=== PATIENT | female | born 1960 | race Caucasian/White ===

== ENCOUNTER 2017-01-04 11:11 | Emergency (ER) | payer OTHER ==
[2017-01-04] MEDS ORDERED: PERCOCET TABLET 5/325MG PO STA (11:45)
--- NOTE | 2017-01-04 11:53 | ERPHSYRPT ---
- History of Present Illness Time Seen by Provider: 01/04/17 11:51 Historian: patient Exam Limitations: no limitations Patient Subjective Stated Complaint: pt states 2 days ago she was senting on couch and got bumped off the couch and injured ribs on a table next to the couch. pt c/o pain to right ribs. Triage Nursing Assessment: pt pink, warm, dry. no deformity mild bruising noted. pt ambulated into Er without difficulty. lung sounds clear and equal. Physician History: 56 y/o female comes to the ER after being pushed off a couch and hitting the right side of her ribs off the side of the couch and on the floor 2 days ago. Pt describes the pain as sharp, constant, worse with inspiration, 9/10 and not relieved by gabapentin and advil. Pt admits to dyspnea on exertion. No fever or chills. Timing/Duration: day(s) (2) Activities at Onset: none Quality: sharpness Location: other (right rib pain) Chest Pain Radiation: no radiation Severity of Pain-Max: severe Severity of Pain-Current: severe Modifying Factors: Improves With: breathing Prior Chest Pain/Cardiac Workup: no prior chest pain Nitro Today/Relief: no nitro taken today Aspirin Treatment Today: no aspirin today Allergies/Adverse Reactions: amoxicillin [Amoxicillin] Allergy (Severe, Verified 01/04/17 11:38) Difficulty Breathing states took 1/2 pill and went into anaphylactic shock iodine Allergy (Verified 01/04/17 11:38) Rash Sulfa (Sulfonamide Antibiotics) Allergy (Verified 01/04/17 11:38) Home Medications: Omeprazole Magnesium [Prilosec Otc] 20 mg PO DAILY 12/31/13 [History] Albuterol Sulfate [Proair Hfa] 2 puff IH Q4HPRN PRN 07/15/16 [History] Alprazolam 2 mg PO QID 07/15/16 [History] Cyclobenzaprine HCl 10 mg [Cyclobenzaprine 10 MG] 10 mg PO TID PRN PRN 02/21 [History] Fexofenadine HCl [Gill Allergy] 180 mg PO DAILY 07/15/16 [History] Furosemide 20 mg [Lasix 20 mg] 20 mg PO DAILY 07/15/16 [History] Gabapentin [Neurontin] 600 mg PO TID 07/15/16 [History] Lisinopril [Zestril 40 mg] 40 mg PO DAILY 07/15/16 [History] Potassium Chloride 10 Meq Tab* [Klor Con 10 MEQ] 10 meq PO DAILY 07/15/16 [ History] Hx Tetanus, Diphtheria Vaccination/Date Given: Yes (up to date) Hx Influenza Vaccination/Date Given: No Hx Pneumococcal Vaccination/Date Given: No Immunizations Up to Date: Yes - Review of Systems Constitutional: No Fever, No Chills Eyes: No Symptoms Ears, Nose, & Throat: No Symptoms Respiratory: Dyspnea on Exertion (RAYA), No Cough, No Dyspnea Cardiac: Chest Pain, No Edema, No Syncope Abdominal/Gastrointestinal: No Abdominal Pain, No Nausea, No Vomiting, No Diarrhea Genitourinary Symptoms: No Dysuria Musculoskeletal: No Back Pain, No Neck Pain Skin: No Rash Neurological: No Dizziness, No Focal Weakness, No Sensory Changes Psychological: No Symptoms Endocrine: No Symptoms All Other Systems: Reviewed and Negative - Past Medical History Pertinent Past Medical History: Yes Neurological History: Migraines, Peripheral Neuropathy ENT History: No Pertinent History Cardiac History: High Cholesterol, Hypertension, Myocardial Infarction ([place]) Respiratory History: Asthma, COPD Endocrine Medical History: Hypothyroidism Musculoskeletal History: Osteoarthritis GI Medical History: No Pertinent History Psycho-Social History: Anxiety, Depression, Eating Disorders Female Reproductive Disorders: Cervical Cancer Other Medical History: [place] x2, nose fracture - Past Surgical History Past Surgical History: Yes Neuro Surgical History: No Pertinent History Cardiac: No Pertinent History Respiratory: No Pertinent History Gastrointestinal: No Pertinent History Genitourinary: No Pertinent History Musculoskeletal: No Pertinent History Female Surgical History: Section, Tubal Ligation Other Surgical History: CERVICAL CANCER REMOVED X 3, X 1, X 1 - Social History Smoking Status: Current every day smoker How long have you smoked: 15 Exposure to second hand smoke: Yes Drug Use: marijuana Patient Lives Alone: No - Female History Hx Now: No - Nursing Vital Signs Nursing Vital Signs: Initial Vital Signs Temperature 97.8 F 01/04/17 11:30 Pulse Rate 84 01/04/17 11:30 Respiratory Rate 18 01/04/17 11:30 Blood Pressure 158/105 01/04/17 11:30 O2 Sat by Pulse Oximetry 98 01/04/17 11:30 Pain Scale Pain Intensity 9 - Physical Exam General Appearance: no apparent distress, alert Eye Exam: PERRL/EOMI, eyes nml inspection Ears, Nose, Throat Exam: normal ENT inspection, moist mucous membranes Neck Exam: normal inspection, non-tender, supple, full range of motion Respiratory Exam: normal breath sounds, chest tenderness, diminished breath sounds, No respiratory distress Cardiovascular Exam: regular rate/rhythm, normal heart sounds, normal peripheral pulses Gastrointestinal/Abdomen Exam: soft, No tenderness, No mass Back Exam: normal inspection, No CVA tenderness, No vertebral tenderness Extremity Exam: normal inspection, normal range of motion Neurologic Exam: alert, oriented x 3, cooperative, normal mood/affect, sensation nml, No motor deficits Skin Exam: normal color, warm, dry SpO2: 98 Oxygen Delivery: Room Air - Course Nursing assessment & vital signs reviewed: Yes Ordered Tests: Active Orders 24 hr Category Date Time Status RIBS BILATERAL INCLUDE PA CXR Stat Exams 01/04/17 Completed Medication Summary Discontinued Medications Generic Name Dose Route Start Last Admin Trade Name Freq PRN Reason Stop Dose Admin Oxycodone/Acetaminophen 1 tab 01/04/17 11:45 01/04/17 11:59 Percocet Tablet 5/325mg PO 01/04/17 11:46 1 tab STAT STA Administration Oxycodone/Acetaminophen Confirm 01/04/17 11:58 Percocet Tablet 5/325mg Administered 01/04/17 11:59 Dose 1 tab .ROUTE .STK-MED ONE - Progress Progress: improved Air Movement: good Progress Note: 01/04/17 12:34 The CXR does not show an acute rib fracture. There are old left sided rib fracture. Pt will be d/c home on percocet for pain. - Departure Time of Disposition: 12:35 Departure Disposition: Home Clinical Impression: Rib injury Condition: Stable Critical Care Time: No Referrals: KULDEEP BEEBE [Primary Care Provider] - Instructions: Rib Contusion Additional Instructions: Take the pain medications as prescribed. Follow up with your PCP if you should continue to have rib pain. Prescriptions: Oxycodone HCl/Acetaminophen [Percocet 5-325 mg Tablet] 1 each PO Q6HPRN PRN #15 tablet PRN Reason: Pain
[2017-01-04] MEDS ORDERED: PERCOCET TABLET 5/325MG ONE (11:58)
--- NOTE | 2017-01-04 12:22 | XRAY ---
Indication: Right sided pain following injury. Comparison: Left ribs June 02, 2011. 2 views of the left and right ribs demonstrates old left 7th/8th/9th rib fractures, old partially united distal right clavicle fracture, mild lumbar dextroscoliosis, and a few scattered pulmonary calcified granulomas. No other bony, articular, or soft tissue abnormalities.
[2017-01-04 12:50] VITALS: BP 120/67; PULSE 87; O2SAT 100
== END 2017-01-04 12:50 | disposition home or self-care (01) ==
LOC: ED 11:11
DX: S29.9XXA Unspecified injury of thorax, initial encounter (principal); W01.190A Fall on same level from slipping, tripping and stumbling with subsequent striking against furniture, initial encounter
CPT/HCPCS: 71111; 99284; A9270-GY

== ENCOUNTER 2017-01-22 10:13 | Emergency (ER) | payer OTHER ==
--- NOTE | 2017-01-22 10:35 | ERPHSYRPT ---
- History of Present Illness Time Seen by Provider: 01/22/17 10:33 Source: patient Exam Limitations: no limitations Patient Subjective Stated Complaint: pt reports playing corn hole last night et rolled her left ankle-woke this morning with dried blood on foot Triage Nursing Assessment: pt pink warm et dry-dried blood noted all over foot- pt instructed to soak foot for further evaluation-swelling noted to ankle Physician History: pt reports playing corn hole last night et rolled her left ankle-woke this morning with dried blood on foot Timing/Duration: yesterday Associated Symptoms: denies symptoms Allergies/Adverse Reactions: amoxicillin [Amoxicillin] Allergy (Severe, Verified 01/22/17 10:19) Difficulty Breathing states took 1/2 pill and went into anaphylactic shock iodine Allergy (Verified 01/22/17 10:19) Rash Sulfa (Sulfonamide Antibiotics) Allergy (Verified 01/22/17 10:19) Home Medications: Omeprazole Magnesium [Prilosec Otc] 20 mg PO DAILY 12/31/13 [History] Albuterol Sulfate [Proair Hfa] 2 puff IH Q4HPRN PRN 07/15/16 [History] Alprazolam 2 mg PO QID 07/15/16 [History] Cyclobenzaprine HCl 10 mg [Cyclobenzaprine 10 MG] 10 mg PO TID PRN PRN 02/21 [History] Fexofenadine HCl [Gill Allergy] 180 mg PO DAILY 07/15/16 [History] Furosemide 20 mg [Lasix 20 mg] 20 mg PO DAILY 07/15/16 [History] Gabapentin [Neurontin] 600 mg PO TID 07/15/16 [History] Lisinopril [Zestril 40 mg] 40 mg PO DAILY 07/15/16 [History] Potassium Chloride 10 Meq Tab* [Klor Con 10 MEQ] 10 meq PO DAILY 07/15/16 [ History] Hx Tetanus, Diphtheria Vaccination/Date Given: No Hx Influenza Vaccination/Date Given: No Hx Pneumococcal Vaccination/Date Given: No Immunizations Up to Date: Yes - Review of Systems Constitutional: No Symptoms Musculoskeletal: Joint Pain (left foot toes), Other (cut bermudez beneath the left foot toes) - Past Medical History Pertinent Past Medical History: Yes Neurological History: Migraines, Peripheral Neuropathy ENT History: No Pertinent History Cardiac History: High Cholesterol, Hypertension, Myocardial Infarction ([place]) Respiratory History: Asthma, COPD Endocrine Medical History: Hypothyroidism Musculoskeletal History: Osteoarthritis GI Medical History: No Pertinent History Psycho-Social History: Anxiety, Depression, Eating Disorders Female Reproductive Disorders: Cervical Cancer Other Medical History: [place] x2, nose fracture - Past Surgical History Past Surgical History: Yes Neuro Surgical History: No Pertinent History Cardiac: No Pertinent History Respiratory: No Pertinent History Gastrointestinal: No Pertinent History Genitourinary: No Pertinent History Musculoskeletal: No Pertinent History Female Surgical History: Section, Tubal Ligation Other Surgical History: CERVICAL CANCER REMOVED X 3, X 1, X 1 - Social History Smoking Status: Current every day smoker How long have you smoked: 15 Exposure to second hand smoke: Yes Drug Use: marijuana Patient Lives Alone: No - Female History Hx Now: No - Nursing Vital Signs Nursing Vital Signs: Initial Vital Signs Temperature 98.1 F 01/22/17 10:21 Pulse Rate 99 H 01/22/17 10:21 Respiratory Rate 18 01/22/17 10:21 Blood Pressure 147/80 01/22/17 10:21 O2 Sat by Pulse Oximetry 95 01/22/17 10:21 Pain Scale Pain Intensity 10 - Physical Exam General Appearance: no apparent distress Extremity Exam: lacerations (left foot toes planter area) SpO2: 95 Oxygen Delivery: Room Air - Course Nursing assessment & vital signs reviewed: Yes - Radiology Exams Ankle X-ray Interpretation: Reviewed by me, Negative, No Fracture, No Subluxation Foot X-ray Interpretation: Reviewed by me, Non-displaced Fracture (5th distal metatarsal) Ordered Tests: Active Orders 24 hr Category Date Time Status Wound Care STAT Care 01/22/17 10:32 Active ANKLE (3 VIEWS) Routine Exams 01/22/17 Taken ANKLE (3 VIEWS) Stat Exams 01/22/17 10:50 Taken FOOT (MINIMUM 3 VIEWS) Routine Exams 01/22/17 Taken FOOT (MINIMUM 3 VIEWS) Stat Exams 01/22/17 10:50 Taken Medication Summary Discontinued Medications Generic Name Dose Route Start Last Admin Trade Name Freq PRN Reason Stop Dose Admin Bacitracin Confirm 01/22/17 11:30 Baciguent Packet Administered 01/22/17 11:31 Dose 1 gm .ROUTE .STK-MED ONE Ketorolac Tromethamine 60 mg 01/22/17 10:51 01/22/17 11:21 Toradol 30 Mg Injection IM 01/22/17 10:52 60 mg STAT ONE Administration Ketorolac Tromethamine Confirm 01/22/17 11:19 Toradol 30 Mg Injection Administered 01/22/17 11:20 Dose 60 mg .ROUTE .STK-MED ONE - Progress Progress: improved, pain not gone completely Progress Note: 01/22/17 11:34 left foot and ankle boot given. dressing applied. 01/22/17 11:34 Patient is informed that she has 3 small laceration in folds of her left foot toes which are more then 12 hours old so they cannot be sutured and they will heal from inside out and will take 2-3 weeks. dressing instructions given. Counseled pt/family regarding: diagnosis, need for follow-up, rad results - Departure Time of Disposition: 11:36 Departure Disposition: Home Clinical Impression: Metatarsal bone fracture Qualifiers: Encounter type: initial encounter Metatarsal bone: fifth Fracture type: closed Fracture alignment: nondisplaced Laterality: left Qualified Code(s): S92.355A - Nondisplaced fracture of fifth metatarsal bone, left foot, initial encounter for closed fracture Laceration of toe of left foot without damage to nail Qualifiers: Encounter type: initial encounter Toe: lesser toe Foreign body presence: without foreign body Qualified Code(s): S91.115A - Laceration without foreign body of left lesser toe(s) without damage to nail, initial encounter Condition: Stable Critical Care Time: No Referrals: KULDEEP BEEBE [Primary Care Provider] - Instructions: July Stress Fracture Additional Instructions: SPRAINS/STRAINS/CONTUSIONS 1. Rest the affected area as much as possible for the next few days. 2. Apply ice to the affected area for 20-30 minutes at a time, several times a day. 3. If you receive an elastic wrap, wear it only while awake for comfort and support. Re-wrap the elastic wrap if it feels too tight or too loose. 4. If swelling is present, elevate the affected part above the level of the heart for at least 2 to 3 days. 5. Use splints, slings, or crutches as instructed. 6. Watch for severe swelling, coldness, numbness, and discoloration of the fingers and toes. See your family physician or return to the emergency department if any of these are noted. LACERATION CARE 1. Do not use peroxide, merthiolate, alcohol, or betadine. 2. Keep wound clean and dry. 3. Change dressing if it becomes wet or soiled. 4. If you must work, wear protective covering. 5. You may return to the emergency department or see your family physician for suture removal. 6. See your family physician or return to the emergency department for any of the following signs or symptoms: A. Redness B. Swelling C. Discolored drainage D. Red streaks E. Elevated temperature F. Other signs of infection Please follow the instructions given to you. Please take your medication as prescribed if given. If symptoms recur or get worse, come back to the emergency room if you cannot reach your primary care physician, or call your primary care physician for an appointment. Again if your symptoms get worse, come back to the emergency room. Thanks for visiting emergency room, and let us take care of you. Patient is informed that she has 3 small laceration in folds of her left foot toes which are more then 12 hours old so they cannot be sutured and they will heal from inside out and will take 2-3 weeks. dressing instructions given. Prescriptions: Ciprofloxacin [Cipro 500 MG] 500 mg PO BIDAC #20 tablet Naproxen 500 mg [Naprosyn 500 MG] 500 mg PO BIDAC #30 tablet
[2017-01-22] MEDS ORDERED: TORAdol 30 mg Injection IM ONE (10:51)
[2017-01-22] MEDS ORDERED: TORAdol 30 mg Injection ONE (11:19)
[2017-01-22] MEDS ORDERED: BACIGUENT PACKET ONE (11:30)
[2017-01-22] MEDS ORDERED: BACIGUENT PACKET TP ONE (12:01)
[2017-01-22 12:11] VITALS: BP 132/70; PULSE 78; O2SAT 96
--- NOTE | 2017-01-22 21:05 | XRAY ---
Indication: Pain following injury. Comparison: None 3 views of the right ankle demonstrates minimal anterior lateral soft tissue swelling. No other bony, articular, or soft tissue abnormalities. Comment: Preliminary interpretation was made by [facility]. No discrepancy.
--- NOTE | 2017-01-22 21:07 | XRAY ---
Indication: Pain following injury. Comparison: None 3 views of the left ankle demonstrates tiny plantar heel spur. No other bony, articular, or soft tissue abnormalities. Comment: Preliminary interpretation was made by [facility]. No discrepancy.
--- NOTE | 2017-01-22 21:07 | XRAY ---
Indication: Pain following injury. Comparison: None 3 nonweightbearing views of the right foot obtained. No bony, articular, or soft tissue abnormalities. Comment: Preliminary interpretation was made by [facility]. No discrepancy.
--- NOTE | 2017-01-22 21:10 | XRAY ---
Indication: Pain following injury. Comparison: None 3 nonweightbearing views of the left foot demonstrates tiny plantar heel spur seen on left ankle exam of the same day. No other bony, articular, or soft tissue abnormalities. Comment: Preliminary interpretation was made by [facility]. No discrepancy.
== END 2017-01-22 12:11 | disposition home or self-care (01) ==
LOC: ED 10:13
DX: S92.355A Nondisplaced fracture of fifth metatarsal bone, left foot, initial encounter for closed fracture (principal); S91.115A Laceration without foreign body of left lesser toe(s) without damage to nail, initial encounter; X50.0XXA Overexertion from strenuous movement or load, initial encounter
CPT/HCPCS: 73610; 73630; 96372; 99284; J1885; A9270-GY

== ENCOUNTER 2018-04-21 13:07 | Emergency (ER) | payer OTHER ==
[2018-04-21] MEDS ORDERED: Hydromorphone 1 mg/ml Ampule IM ONE (13:41)
[2018-04-21] MEDS ORDERED: Phenergan 25 MG INJ IM ONE (13:42)
--- NOTE | 2018-04-21 13:46 | ERPHSYRPT ---
- History of Present Illness Time Seen by Provider: 04/21/18 13:40 Source: patient Exam Limitations: clinical condition Patient Subjective Stated Complaint: co headache everyday for a month, this headache today is the worse she has had, seen Wade Ramires on monday and is being referred to neurologist. Triage Nursing Assessment: pt alert, walked in, resp easy, skin w/d/p. pain to right eye that radiates around to back, nauseated, flushed feeling, has tried alever, xanax/ Physician History: PATIENT WITH A HISTORY MIGRAINE HEADACHES FOR 30 YEARS, COMPLAINS OF A GENERALIZED HEADACHE DAILY FOR THE PAST MONTH ASSOCIATED WITH NAUSEA AND PHOTOPHOBIA. PATIENT DENIES FEVER, NECK STIFFNESS, BLURRED, OR SLURRED SPEECH. Timing/Duration: week(s) Quality: throbbing Head Pain Location: global Severity of Pain-Max: moderate Severity of Pain-Current: moderate Recent Head Trauma: no recent headache/trauma, chronic headaches Modifying Factors: Improves With: exposure to light Associated Symptoms: sensitive to light Previous symptoms: same symptoms as today Allergies/Adverse Reactions: amoxicillin [Amoxicillin] Allergy (Severe, Verified 04/21/18 13:28) Difficulty Breathing states took 1/2 pill and went into anaphylactic shock iodine Allergy (Verified 04/21/18 13:28) Rash Sulfa (Sulfonamide Antibiotics) Allergy (Verified 04/21/18 13:28) Home Medications: Omeprazole Magnesium [Prilosec Otc] 20 mg PO DAILY 12/31/13 [History] ALPRAZolam [Alprazolam] 2 mg PO QID 07/15/16 [History] Albuterol Sulfate [Proair Hfa] 2 puff IH Q4HPRN PRN 07/15/16 [History] Cyclobenzaprine HCl 10 mg [Cyclobenzaprine 10 MG] 10 mg PO TID PRN PRN 02/21 [History] Fexofenadine HCl [Gill Allergy] 180 mg PO DAILY 07/15/16 [History] Lisinopril [Zestril 40 mg] 40 mg PO DAILY 07/15/16 [History] Potassium Chloride 10 Meq Tab* [Klor Con 10 MEQ] 10 meq PO DAILY 07/15/16 [ History] Levothyroxine Sodium 100 Mcg [Synthroid 100 Mcg] 125 mcg PO DAILY 04/21/18 [History] Hx Tetanus, Diphtheria Vaccination/Date Given: No Hx Influenza Vaccination/Date Given: Yes Hx Pneumococcal Vaccination/Date Given: No Immunizations Up to Date: Yes - Review of Systems Constitutional: No Fever, No Chills Eyes: No Symptoms Ears, Nose, & Throat: No Symptoms Respiratory: No Symptoms, No Cough, No Dyspnea Cardiac: No Symptoms, No Chest Pain, No Edema, No Syncope Abdominal/Gastrointestinal: No Symptoms, No Abdominal Pain, No Nausea, No Vomiting, No Diarrhea Genitourinary Symptoms: No Symptoms, No Dysuria Musculoskeletal: No Symptoms, No Back Pain, No Neck Pain Skin: No Symptoms, No Rash Neurological: Headache, No Dizziness, No Focal Weakness, No Sensory Changes Psychological: No Symptoms Endocrine: No Symptoms All Other Systems: Reviewed and Negative - Past Medical History Pertinent Past Medical History: Yes Neurological History: Migraines, Seizures ENT History: No Pertinent History Cardiac History: Hypertension Respiratory History: Asthma, COPD Endocrine Medical History: Hyperthyroidism Musculoskeletal History: Osteoarthritis GI Medical History: No Pertinent History Psycho-Social History: Depression Female Reproductive Disorders: Cervical Cancer Other Medical History: [place] x2, nose fracture - Past Surgical History Past Surgical History: Yes Neuro Surgical History: No Pertinent History Cardiac: No Pertinent History Respiratory: No Pertinent History Gastrointestinal: No Pertinent History Genitourinary: No Pertinent History Musculoskeletal: No Pertinent History Female Surgical History: Section Other Surgical History: CERVICAL CANCER REMOVED X 3, X 1, X 1 - Social History Smoking Status: Current every day smoker How long have you smoked: 15 Exposure to second hand smoke: Yes Drug Use: marijuana Patient Lives Alone: No - Female History Hx Last Menstrual Period: post Hx Now: No - Nursing Vital Signs Nursing Vital Signs: Initial Vital Signs Temperature 97.8 F 04/21/18 13:21 Pulse Rate 78 04/21/18 13:21 Respiratory Rate 18 04/21/18 13:21 Blood Pressure 173/108 04/21/18 13:21 O2 Sat by Pulse Oximetry 98 04/21/18 13:21 Pain Scale Pain Intensity 4 - Physical Exam General Appearance: mild distress Eye Exam: PERRL/EOMI Ears, Nose, Throat Exam: normal ENT inspection, moist mucous membranes Neck Exam: normal inspection, supple, full range of motion, No meningismus Respiratory Exam: normal breath sounds, lungs clear Cardiovascular Exam: regular rate/rhythm, normal heart sounds Gastrointestinal/Abdominal Exam: No tenderness, No distention Back Exam: normal inspection, normal range of motion Mental Status Exam: alert, oriented x 3, 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 THE PITUITARY GLAND IS NOT ABNORMALLY LARGE. THE FOCAL HYPERDENSITY IN THE ANTERIOR PORTION PITUITARY GLAND COULD REPRESENT HEMORRHAGE, PITUITARY APOPLEXY, RATHKE CLEFT CYST, RECOMMEND SELLA PROTOCOL MRI WITH AND WITHOUT CONTRAST.) Ordered Tests: Active Orders 24 hr Category Date Time Status HEAD WITHOUT CONTRAST [CT] Stat Exams 04/21/18 13:41 Completed BMP Stat Lab 04/21/18 15:10 Completed CBC W DIFF Stat Lab 04/21/18 15:10 Completed PROTIME WITH INR Stat Lab 04/21/18 15:10 Completed TSH [TSH, 3RD Generation] Stat Lab 04/21/18 16:07 Ordered Medication Summary Discontinued Medications Generic Name Dose Route Start Last Admin Trade Name Mansoorq PRN Reason Stop Dose Admin Hydromorphone HCl 1 mg 04/21/18 13:41 04/21/18 13:50 Hydromorphone 1 Mg/Ml Ampule IM 04/21/18 13:42 1 mg STAT ONE Administration Hydromorphone HCl Confirm 04/21/18 13:48 Hydromorphone 1 Mg/Ml Ampule Administered 04/21/18 13:49 Dose 1 mg .ROUTE .STK-MED ONE Morphine Sulfate 4 mg 04/21/18 15:58 Morphine Sulfate 4 Mg Inj IV 04/21/18 15:59 STAT ONE Promethazine HCl 25 mg 04/21/18 13:42 04/21/18 13:50 Phenergan 25 Mg Inj IM 04/21/18 13:43 25 mg STAT ONE Administration Promethazine HCl Confirm 04/21/18 13:48 Phenergan 25 Mg Inj Administered 04/21/18 13:49 Dose 25 mg .ROUTE .STK-MED ONE Lab/Rad Data: Laboratory Result Diagrams 04/21/18 15:10 04/21/18 15:10 Laboratory Results 04/21/18 04/21/18 04/21/18 Range/Units 15:10 15:10 15:10 WBC 8.2 (4.0-10.5) K/mm3 RBC 4.05 L (4.1-5.4) M/mm3 Hgb 12.6 (12.0-16.0) gm/dl Hct 38.1 (35-47) % MCV 94.1 (78-100) fl MCH 31.1 (26-32) pg MCHC 33.1 (32-36) g/dl RDW 13.3 (11.5-14.0) % Plt Count 332 (150-450) K/mm3 MPV 10.3 H (6-9.5) fl Gran % 50.8 (36.0-66.0) % Eos # (Auto) 0.17 (0-0.5) Absolute Lymphs (auto) 2.97 (1.0-4.6) Absolute Monos (auto) 0.86 (0.0-1.3) Lymphocytes % 36.1 (24.0-44.0) % Monocytes % 10.5 (0.0-12.0) % Eosinophils % 2.1 (0.00-5.0) % Basophils % 0.5 (0.0-0.4) % Absolute Granulocytes 4.18 (1.4-6.9) Basophils # 0.04 (0-0.4) PT 11.2 (9.95-12.35) SECONDS INR 0.96 (0.8-3.0) Sodium 140 (137-145) mmol/L Potassium 4.5 (3.5-5.1) mmol/L Chloride 105 (98-107) mmol/L Carbon Dioxide 26 (22-30) mmol/L Anion Gap 13.4 (5-15) MEQ/L BUN 12 (7-17) mg/dL Creatinine 0.65 (0.52-1.04) mg/dL Estimated GFR > 60.0 ML/MIN Glucose 89 (74-106) mg/dL Calcium 9.6 (8.4-10.2) mg/dL - Progress Progress: improved Progress Note: 04/21/18 13:45 ADMINISTERED DILAUDID 1MG/PHENERGAN 25MG IM 04/21/18 15:13, IV NORMAL SALINE 50ML/HR 04/21/18 15:59, DISCUSSED WITH DR LUC KEMP AT [facility] OF [facility] SCIENTOLOGIST STATES HEAD CT FINDINGS IS UNREMARKABLE WITHOUT EVIDENCE OF HEMMORRHAGE OR EDEMA DIVERTICULITIS WILL SCHEDULE AN OUTPATIENT HEAD MRI WITH/ WITHOUT CONTRAST, WILL OBTAIN PROLACTIN LEVEL CORTISOL AND TSH LEVELS, WILL HAVE PATIENT FOLLOWUP WITH PRIMARY CARE PROVIDER NEXT WEEK AND NEUROSURGEON DR KEMP [phone] 04/21/18 16:12, THE HEAT CT SCAN READ BY DR MURRAY SHOWS A PRELIMINARY INTERPETATION WAS MADE BY [facility] WHO REPORTS SUB-5MM PITUITARY HYPERDENSITY WHICH HE DOES APPRECIATE. THE PITUITARY GLAND/ [place]URCICA IS UNCHANGED IN APPEARANCE WITH RESPECT TO THE COMPARISON EXAM. Counseled pt/family regarding: lab results, diagnosis, need for follow-up, rad results - Departure Time of Disposition: 17:40 Departure Disposition: Home Clinical Impression: MIGRAINE CEPHALGIA Condition: Stable Critical Care Time: No Referrals: KULDEEP BEEBE [Primary Care Provider] - Additional Instructions: RETURN TO HOSPITAL RADIOLOGY DEPARTMENT Apr AT 3PM FOR OUTPATIENT MRI OF YOUR BRAIN. FOLLOWUP WITH YOUR PRIMARY CARE PROVIDER THIS WEEK AND NEUROSURGEON DR LUC KEMP FOR CONSULTATION. NORCO 10/325 EVERY 6 HOURS FOR PAIN. Prescriptions: Hydrocodone/APAP 10/325 mg [Sidney 10/325 MG Tablet] 1 tab PO Q6H PRN PRN 5 Days #10 tablet MDD 4 PRN Reason: Pain
[2018-04-21] MEDS ORDERED: Hydromorphone 1 mg/ml Ampule ONE (13:48)
[2018-04-21] MEDS ORDERED: Phenergan 25 MG INJ ONE (13:48)
[2018-04-21 15:22] LABS: BASOPHIL % 0.5 % (0.0-0.4); Basophil (Absolute #) 0.04 (0-0.4); Eosinophil % 2.1 % (0.00-5.0); Eosinophil (Absolute #) 0.17 (0-0.5); Granulocyte Absolute (ANC) 4.18 (1.4-6.9); Granulocytes % 50.8 % (36.0-66.0); Hematocrit 38.1 % (35-47); Hemoglobin 12.6 gm/dl (12.0-16.0); Lymphocyte (Absolute #) 2.97 (1.0-4.6); Lymphocytes % 36.1 % (24.0-44.0); Mean Cell Volume 94.1 fl (78-100); Mean Corpuscular Hemoglobin 31.1 pg (26-32); Mean Corpuscular Hgb Concent. 33.1 g/dl (32-36); Mean Platelet Volume 10.3 fl (6-9.5); Monocyte (Absolute #) 0.86 (0.0-1.3); Monocytes % 10.5 % (0.0-12.0); Platelet Count 332 K/mm3 (150-450); Red Blood Count 4.05 M/mm3 (4.1-5.4); Red Cell Distribution Width 13.3 % (11.5-14.0); White Blood Count 8.2 K/mm3 (4.0-10.5)
[2018-04-21 15:30] VITALS: O2SAT 98
[2018-04-21 15:38] LABS: INR 0.96 (0.8-3.0)
[2018-04-21 15:43] LABS: ANION GAP 13.4 MEQ/L (5-15); BLOOD UREA NITROGEN 12 mg/dL (7-17); CHLORIDE 105 mmol/L (98-107); Calcium 9.6 mg/dL (8.4-10.2); Carbon Dioxide 26 mmol/L (22-30); Creatinine 1 0.65 mg/dL (0.52-1.04); Glucose 89 mg/dL (74-106); Potassium 4.5 mmol/L (3.5-5.1); SODIUM 140 mmol/L (137-145)
[2018-04-21] MEDS ORDERED: MORPHINE SULFATE 4 MG INJ IV ONE (15:58)
--- NOTE | 2018-04-21 15:59 | XRAY ---
Indication: Right-sided headache 1 month. History migraine seizures. Multiple contiguous axial images obtained through the head without contrast. Comparison: May 17, 2008. Age-appropriate global atrophy and very minimal periventricular degenerative microvascular ischemia bilaterally. Parasellar internal carotid arteries again demonstrates mild calcifications bilaterally. No acute intracranial hemorrhage, abnormal extra-axial fluid collection, or mass effect. Reynoso-white matter differentiation preserved. Fourth ventricle is midline without hydrocephalus. Bony calvarium intact. Visualized paranasal sinuses and mastoid air cells are clear. Impression: Normal aging brain including atrophy and degenerative microvascular ischemia. No acute intracranial abnormalities. Comment: Preliminary interpretation was made by [facility] who reports sub-5 mm pituitary hyperdensity which I do not appreciate. The pituitary gland/sella turcica is unchanged in appearance with respect to the comparison exam. However MRI sella turcica exam may yield further information if there remains further clinical concern. CTDI 69.66
[2018-04-21] MEDS ORDERED: MORPHINE SULFATE 4 MG INJ ONE (16:16)
[2018-04-21 16:53] VITALS: BP 117/80; PULSE 78
== END 2018-04-21 16:56 | disposition home or self-care (01) ==
LOC: ED 13:07
DX: G43.909 Migraine, unspecified, not intractable, without status migrainosus (principal); Z79.899 Other long term (current) drug therapy; I10 Essential (primary) hypertension
CPT/HCPCS: 36000; 36415; 70450; 80048; 82533; 84146; 84443; 85025; 85610; 96372; 96374; 96375; 99284; J1170; J2270; J2550

== ENCOUNTER 2018-05-09 15:15 | Emergency (ER) | payer OTHER ==
--- NOTE | 2018-05-09 16:17 | ERPHSYRPT ---
- History of Present Illness Time Seen by Provider: 05/09/18 16:08 Source: patient Exam Limitations: no limitations Patient Subjective Stated Complaint: pt was told to come to [facility] to results of MRI of head, pt has been seen for headaches for a over a month now, she had ct scan on 04/21/18 and was told to follow up with for an MRI, pt states she does not remember that visit, she states she eye sight is worse, she is a poor historian on events Triage Nursing Assessment: pt walked in, alert, anxious, resp easy, skin w/d/p. able to undress, Physician History: The patient is a 58-year-old female with her family complaining of daily headaches for more than one month. She was seen in this ER on 04/21/18 for the headaches. She had a head CT done at that time which I have reviewed the report showing that there is a septic 5 mm pituitary hyperdensity that was reported by the [facility] that our radiologist did not see it. An MRI of her brain was done today reporting that there was subacute ischemia that also may be leptomeningeal carcinomatosis, lymphoma, and focal encephalitis/meningitis. She was called by Dr. Ruiz who is covering for Dr. Beebe to come to the ER for further workup. She doesn't remember things very well. She does not even recall the visit here on 04/21/18. She can't even recall that she was given a phone call today to come to the ER. Her past medical history significant for daily headaches, hypertension, COPD, and hypothyroidism. Timing/Duration: other (2 months) Severity: moderate Character of Deficits: other (memory loss) Baseline/Normal Cognition: alert oriented x 3 Current Cognition: alert oriented x 3 Baseline Gait: walks w/o assistance Associated Symptoms: headache, other Allergies/Adverse Reactions: amoxicillin [Amoxicillin] Allergy (Severe, Verified 04/21/18 13:28) Difficulty Breathing states took 1/2 pill and went into anaphylactic shock iodine Allergy (Verified 04/21/18 13:28) Rash Sulfa (Sulfonamide Antibiotics) Allergy (Verified 04/21/18 13:28) Home Medications: Omeprazole Magnesium [Prilosec Otc] 20 mg PO DAILY 12/31/13 [History] Albuterol Sulfate [Proair Hfa] 2 puff IH Q4HPRN PRN 07/15/16 [History] Cyclobenzaprine HCl 10 mg [Cyclobenzaprine 10 MG] 10 mg PO TID PRN PRN 02/21 [History] Lisinopril [Zestril 40 mg] 40 mg PO DAILY 07/15/16 [History] Potassium Chloride 10 Meq Tab* [Klor Con 10 MEQ] 10 meq PO DAILY 07/15/16 [ History] Levothyroxine Sodium 100 Mcg [Synthroid 100 Mcg] 125 mcg PO DAILY 04/21/18 [History] Alendronate Sodium 70 mg [Fosamax 70 MG] 70 mg PO UD 05/09/18 [History] Alprazolam 1 mg [Xanax 1 mg] 1 mg PO BID PRN 05/09/18 [History] Escitalopram Oxalate [Lexapro] 20 mg PO DAILY 05/09/18 [History] Furosemide 20 mg [Lasix 20 mg] 20 mg PO DAILY 05/09/18 [History] Montelukast Sodium 10 mg [Singulair 10 MG] 10 mg PO DAILY 05/09/18 [History] Simvastatin 20Mg [Zocor 20Mg] 20 mg PO DAILY 05/09/18 [History] Hx Tetanus, Diphtheria Vaccination/Date Given: No Hx Influenza Vaccination/Date Given: Yes Hx Pneumococcal Vaccination/Date Given: No Immunizations Up to Date: Yes - Review of Systems Constitutional: No Fever, No Chills Eyes: No Symptoms Ears, Nose, & Throat: No Symptoms Respiratory: No Cough, No Dyspnea Cardiac: No Chest Pain, No Edema, No Syncope Abdominal/Gastrointestinal: No Abdominal Pain, No Nausea, No Vomiting, No Diarrhea Genitourinary Symptoms: No Dysuria Musculoskeletal: No Back Pain, No Neck Pain Skin: No Rash Neurological: Headache, Other (memory loss) Psychological: No Symptoms Endocrine: No Symptoms Hematologic/Lymphatic: No Symptoms Immunological/Allergic: No Symptoms All Other Systems: Reviewed and Negative - Past Medical History Pertinent Past Medical History: Yes Neurological History: Migraines, Seizures ENT History: No Pertinent History Cardiac History: Hypertension Respiratory History: Asthma, COPD Endocrine Medical History: Hyperthyroidism Musculoskeletal History: Osteoarthritis GI Medical History: No Pertinent History Psycho-Social History: Depression Female Reproductive Disorders: Cervical Cancer Other Medical History: [place] x2, nose fracture - Past Surgical History Past Surgical History: Yes Neuro Surgical History: No Pertinent History Cardiac: No Pertinent History Respiratory: No Pertinent History Gastrointestinal: No Pertinent History Genitourinary: No Pertinent History Musculoskeletal: No Pertinent History Female Surgical History: Section Other Surgical History: CERVICAL CANCER REMOVED X 3, X 1, X 1 - Social History Smoking Status: Current every day smoker How long have you smoked: 15 Exposure to second hand smoke: Yes Drug Use: marijuana Patient Lives Alone: No - Female History Hx Last Menstrual Period: psot Hx Now: No - Nursing Vital Signs Nursing Vital Signs: Initial Vital Signs Temperature 97.5 F 05/09/18 16:05 Pulse Rate 91 H 05/09/18 16:05 Respiratory Rate 18 05/09/18 16:05 Blood Pressure 146/97 05/09/18 16:05 O2 Sat by Pulse Oximetry 98 05/09/18 16:05 Pain Scale Pain Intensity 4 - [place] Coma Scale Best Eye Response (Haroon): (4) open spontaneously Best Verbal Response ([place]): (5) oriented Best Motor Response ([place]): (6) obeys commands [place] Total: 15 - Physical Exam General Appearance: no apparent distress, alert Eye Exam: bilateral eye: normal inspection Ears, Nose, Throat Exam: normal ENT inspection, moist mucous membranes Neck Exam: normal inspection, non-tender, supple Respiratory: normal breath sounds, lungs clear, airway intact, No respiratory distress Cardiovascular: regular rate/rhythm, No edema Gastrointestinal: soft, No tenderness, No distention Pelvic Exam: not done Rectal Exam: not done Back Exam: normal inspection Extremity Exam: normal inspection, No pedal edema 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, 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 Exam: tongue midline Coordination/Gait: normal finger to nose, normal gait Motor/Sensory: no motor deficit Skin Exam: normal color, warm, dry, No rash SpO2 Interpretation: normal Oxygen Delivery: Room Air Ordered Tests: Active Orders 24 hr Category Date Time Status Clean Catch Urine Specimen STAT Care 05/09/18 16:22 Active EKG-ER Only STAT Care 05/09/18 16:23 Active CBC W DIFF Stat Lab 05/09/18 16:41 Completed CMP Stat Lab 05/09/18 16:41 Completed Lactic Acid Stat Lab 05/09/18 16:40 Completed PROTIME WITH INR Stat Lab 05/09/18 16:41 Completed UA W/RFX UR CULTURE Stat Lab 05/09/18 16:34 Completed Urine Triage Profile Stat Lab 05/09/18 16:34 Completed Medication Summary Discontinued Medications Generic Name Dose Route Start Last Admin Trade Name Mansoorq PRN Reason Stop Dose Admin Tramadol HCl 50 mg 05/09/18 17:43 05/09/18 17:49 Ultram 50 Mg PO 05/09/18 17:44 50 mg STAT ONE Administration Tramadol HCl Confirm 05/09/18 17:48 Ultram 50 Mg Administered 05/09/18 17:49 Dose 50 mg .ROUTE .UrtheCast-YASSSU ONE Lab/Rad Data: Laboratory Result Diagrams 05/09/18 16:41 05/09/18 16:41 Laboratory Results 05/09/18 05/09/18 05/09/18 Range/Units 16:41 16:41 16:41 WBC 8.3 (4.0-10.5) K/mm3 RBC 4.20 (4.1-5.4) M/mm3 Hgb 13.1 (12.0-16.0) gm/dl Hct 39.2 (35-47) % MCV 93.3 (78-100) fl MCH 31.2 (26-32) pg MCHC 33.4 (32-36) g/dl RDW 13.6 (11.5-14.0) % Plt Count 435 (150-450) K/mm3 MPV 9.7 H (6-9.5) fl Gran % 48.9 (36.0-66.0) % Eos # (Auto) 0.25 (0-0.5) Absolute Lymphs (auto) 3.41 (1.0-4.6) Absolute Monos (auto) 0.52 (0.0-1.3) Lymphocytes % 41.1 (24.0-44.0) % Monocytes % 6.3 (0.0-12.0) % Eosinophils % 3.0 (0.00-5.0) % Basophils % 0.7 (0.0-0.4) % Absolute Granulocytes 4.05 (1.4-6.9) Basophils # 0.06 (0-0.4) PT 10.3 (9.95-12.35) SECONDS INR 0.89 (0.8-3.0) Sodium 142 (137-145) mmol/L Potassium 3.8 (3.5-5.1) mmol/L Chloride 105 (98-107) mmol/L Carbon Dioxide 26 (22-30) mmol/L Anion Gap 15.0 (5-15) MEQ/L BUN 14 (7-17) mg/dL Creatinine 0.98 (0.52-1.04) mg/dL Estimated GFR > 60.0 ML/MIN Glucose 84 (74-106) mg/dL Lactic Acid (0.4-2.0) Calcium 10.0 (8.4-10.2) mg/dL Total Bilirubin 0.40 (0.2-1.3) mg/dL AST 23 (14-36) U/L ALT 14 (0-35) U/L Alkaline Phosphatase 65 (38-126) U/L Serum Total Protein 7.8 (6.3-8.2) g/dL Albumin 4.7 (3.5-5.0) g/dL Urine Color (YELLOW) Urine Appearance (CLEAR) Urine pH (5-6) Ur Specific Wisner (1.005-1.025) Urine Protein (Negative) Urine Ketones (NEGATIVE) Urine Blood (0-5) Dannie/ul Urine Nitrite (NEGATIVE) Urine Bilirubin (NEGATIVE) Urine Urobilinogen (0-1) mg/dL Ur Leukocyte Esterase (NEGATIVE) Urine WBC (Auto) (0-5) /HPF Urine RBC (Auto) (0-2) /HPF U Epithel Cells (Auto) (FEW) /HPF Urine Bacteria (Auto) (NEGATIVE) /HPF Urine Culture Reflexed (NO) Urine Glucose (NEGATIVE) mg/dL Urine Opiates Level (NEGATIVE) Ur Methadone (NEGATIVE) Urine Barbiturates (NEGATIVE) Ur Phencyclidine (PCP) (NEGATIVE) Urine Amphetamine (NEGATIVE) U Benzodiazepine Level (NEGATIVE) Urine Cocaine (NEGATIVE) Urine Marijuana (THC) (NEGATIVE) 05/09/18 05/09/18 05/09/18 Range/Units 16:40 16:34 16:34 WBC (4.0-10.5) K/mm3 RBC (4.1-5.4) M/mm3 Hgb (12.0-16.0) gm/dl Hct (35-47) % MCV (78-100) fl MCH (26-32) pg MCHC (32-36) g/dl RDW (11.5-14.0) % Plt Count (150-450) K/mm3 MPV (6-9.5) fl Gran % (36.0-66.0) % Eos # (Auto) (0-0.5) Absolute Lymphs (auto) (1.0-4.6) Absolute Monos (auto) (0.0-1.3) Lymphocytes % (24.0-44.0) % Monocytes % (0.0-12.0) % Eosinophils % (0.00-5.0) % Basophils % (0.0-0.4) % Absolute Granulocytes (1.4-6.9) Basophils # (0-0.4) PT (9.95-12.35) SECONDS INR (0.8-3.0) Sodium (137-145) mmol/L Potassium (3.5-5.1) mmol/L Chloride (98-107) mmol/L Carbon Dioxide (22-30) mmol/L Anion Gap (5-15) MEQ/L BUN (7-17) mg/dL Creatinine (0.52-1.04) mg/dL Estimated GFR ML/MIN Glucose (74-106) mg/dL Lactic Acid 1.6 (0.4-2.0) Calcium (8.4-10.2) mg/dL Total Bilirubin (0.2-1.3) mg/dL AST (14-36) U/L ALT (0-35) U/L Alkaline Phosphatase (38-126) U/L Serum Total Protein (6.3-8.2) g/dL Albumin (3.5-5.0) g/dL Urine Color COLORLESS (YELLOW) Urine Appearance CLEAR (CLEAR) Urine pH 6.0 (5-6) Ur Specific Wisner 1.002 (1.005-1.025) Urine Protein NEGATIVE (Negative) Urine Ketones NEGATIVE (NEGATIVE) Urine Blood NEGATIVE (0-5) Dannie/ul Urine Nitrite NEGATIVE (NEGATIVE) Urine Bilirubin NEGATIVE (NEGATIVE) Urine Urobilinogen NEGATIVE (0-1) mg/dL Ur Leukocyte Esterase NEGATIVE (NEGATIVE) Urine WBC (Auto) NONE (0-5) /HPF Urine RBC (Auto) NONE (0-2) /HPF U Epithel Cells (Auto) NONE (FEW) /HPF Urine Bacteria (Auto) NONE (NEGATIVE) /HPF Urine Culture Reflexed NO (NO) Urine Glucose NEGATIVE (NEGATIVE) mg/dL Urine Opiates Level NEGATIVE (NEGATIVE) Ur Methadone NEGATIVE (NEGATIVE) Urine Barbiturates NEGATIVE (NEGATIVE) Ur Phencyclidine (PCP) NEGATIVE (NEGATIVE) Urine Amphetamine NEGATIVE (NEGATIVE) U Benzodiazepine Level NEGATIVE (NEGATIVE) Urine Cocaine NEGATIVE (NEGATIVE) Urine Marijuana (THC) NEGATIVE (NEGATIVE) - Progress Progress: unchanged Progress Note: 05/09/18 18:[address] Jim, neurologis, and Dr Lynch, hospitalist at [facility]. Drs accepts pt. - Departure Time of Disposition: 18:50 Departure Disposition: Transfer (Transfer to [facility], per Dr Lynch.) Clinical Impression: Confusion, Memory change Condition: Stable Critical Care Time: No Referrals: KULDEEP BEEBE [Primary Care Provider] -
[2018-05-09 16:45] LABS: BASOPHIL % 0.7 % (0.0-0.4); Basophil (Absolute #) 0.06 (0-0.4); Eosinophil (Absolute #) 0.25 (0-0.5); Granulocyte Absolute (ANC) 4.05 (1.4-6.9); Granulocytes % 48.9 % (36.0-66.0); Hematocrit 39.2 % (35-47); Hemoglobin 13.1 gm/dl (12.0-16.0); Lymphocyte (Absolute #) 3.41 (1.0-4.6); Lymphocytes % 41.1 % (24.0-44.0); Mean Cell Volume 93.3 fl (78-100); Mean Corpuscular Hemoglobin 31.2 pg (26-32); Mean Corpuscular Hgb Concent. 33.4 g/dl (32-36); Mean Platelet Volume 9.7 fl (6-9.5); Monocyte (Absolute #) 0.52 (0.0-1.3); Monocytes % 6.3 % (0.0-12.0); Platelet Count 435 K/mm3 (150-450); Red Cell Distribution Width 13.6 % (11.5-14.0); White Blood Count 8.3 K/mm3 (4.0-10.5)
[2018-05-09 16:55] LABS: ALBUMIN 4.7 g/dL (3.5-5.0); ALKALINE PHOSPHATASE 65 U/L (38-126); BLOOD UREA NITROGEN 14 mg/dL (7-17); CHLORIDE 105 mmol/L (98-107); Carbon Dioxide 26 mmol/L (22-30); Creatinine 1 0.98 mg/dL (0.52-1.04); Glucose 84 mg/dL (74-106); Potassium 3.8 mmol/L (3.5-5.1); SGOT/AST 23 U/L (14-36); SGPT/ALT 14 U/L (0-35); SODIUM 142 mmol/L (137-145); Total Protein 7.8 g/dL (6.3-8.2)
[2018-05-09 16:59] LABS: Appearance CLEAR (CLEAR); Bilirubin NEGATIVE (NEGATIVE); Blood NEGATIVE Ery/ul (0-5); Glucose NEGATIVE (NEGATIVE); Ketones NEGATIVE (NEGATIVE); Leukocyte Esterase NEGATIVE (NEGATIVE); Nitrite NEGATIVE (NEGATIVE); Protein,Urine Dip NEGATIVE (Negative); Specific Gravity 1.002 (1.005-1.025); Urobilinogen NEGATIVE mg/dL (0-1)
[2018-05-09 17:00] LABS: Amphetamine,Urine NEGATIVE (NEGATIVE); Barbiturate,Urine NEGATIVE (NEGATIVE); Benzodiazepine,Urine NEGATIVE (NEGATIVE); Cocaine,Urine NEGATIVE (NEGATIVE); Methadone,Urine NEGATIVE (NEGATIVE); Opiate,Urine NEGATIVE (NEGATIVE); PCP,Urine NEGATIVE (NEGATIVE); THC,Urine NEGATIVE (NEGATIVE)
[2018-05-09 17:01] LABS: INR 0.89 (0.8-3.0)
[2018-05-09] MEDS ORDERED: ULTRAM 50 MG PO ONE (17:43)
[2018-05-09] MEDS ORDERED: ULTRAM 50 MG ONE (17:48)
[2018-05-09 20:32] VITALS: BP 174/105; PULSE 86; O2SAT 98
== END 2018-05-09 22:00 | disposition short-term general hospital (02) ==
LOC: ED 15:15
DX: R41.0 Disorientation, unspecified (principal); R41.3 Other amnesia; R51 Headache; I10 Essential (primary) hypertension; Z79.899 Other long term (current) drug therapy
CPT/HCPCS: 36415; 80053; 80307; 81001; 83605; 85025; 85610; 93005; 99284; A9270-GY

== ENCOUNTER 2024-06-11 08:09 | Emergency (ER) | payer OTHER ==
--- NOTE | 2024-06-11 08:18 | ERPHSYRPT ---
- History of Present Illness Time Seen by Provider: 06/11/24 08:25 Physician History: 64-year-old female presents to our ED for evaluation. Per EMS patient was found outdoors on the ground. Patient reports that she has been living without heat and food for several months. Patient reports her left her. Patient was either coming from a friend's house or going to a friend's house last night. Patient states she fell outdoors. She was unable to get up. Patient has been outdoors throughout the night. Patient was found early this morning. Patient complains of vague chest discomfort, pain to her knees and right foot. Patient reports she has been crawling around on her knees and she has been unable to get up. No neck pain. Cervical spine cleared clinically. Patient is hypothermic in our ED with a core temp of 92 Fahrenheit patient's symptoms are constant. Symptoms are moderate in intensity. No specific worsening or improving factors. Patient voices no other complaints or concerns at this time. Portions of this note were created with voice recognition technology. There may be grammatical, spelling, punctuation or sound alike errors Timing/Duration: today Severity: moderate Associated Symptoms: denies symptoms Allergies/Adverse Reactions: amoxicillin [Amoxicillin] Allergy (Severe, Verified 06/11/24 08:34) Difficulty Breathing states took 1/2 pill and went into anaphylactic shock iodine Allergy (Verified 06/11/24 08:34) Rash Penicillins Allergy (Verified 06/11/24 08:34) Sulfa (Sulfonamide Antibiotics) Allergy (Verified 04/21/18 13:28) Home Medications: Omeprazole Magnesium [Prilosec Otc] 20 mg PO DAILY 12/31/13 [History] Albuterol Sulfate [Proair Hfa] 2 puff IH Q4HPRN PRN 07/15/16 [History] Cyclobenzaprine HCl 10 mg [Cyclobenzaprine 10 MG] 10 mg PO TID PRN PRN 07/15/16 [History] Potassium Chloride Tab* [Klor Con 10 MEQ] 10 meq PO DAILY 07/15/16 [History] lisinopriL [Zestril 40 mg] 40 mg PO DAILY 07/15/16 [History] Levothyroxine Sodium 100 Mcg [Synthroid 100 Mcg] 125 mcg PO DAILY 04/21/18 [History] ALPRAZolam 1 MG [Xanax 1 mg] 1 mg PO BID PRN 05/09/18 [History] Alendronate Sodium 70 mg [Fosamax 70 MG] 70 mg PO UD 05/09/18 [History] Escitalopram Oxalate [Lexapro] 20 mg PO DAILY 05/09/18 [History] Furosemide 20 mg [Lasix 20 mg] 20 mg PO DAILY 05/09/18 [History] Montelukast Sodium 10 mg [Singulair 10 MG] 10 mg PO DAILY 05/09/18 [History] Simvastatin 20Mg [Zocor 20Mg] 20 mg PO DAILY 05/09/18 [History] Hx Tetanus, Diphtheria Vaccination/Date Given: No Hx Influenza Vaccination/Date Given: Yes Hx Pneumococcal Vaccination/Date Given: No - Review of Systems Constitutional: No Symptoms, No Fever, No Chills Eyes: No Symptoms Ears, Nose, & Throat: No Symptoms Respiratory: No Symptoms, No Cough, No Dyspnea Cardiac: No Symptoms, No Chest Pain, No Edema, No Syncope Abdominal/Gastrointestinal: No Symptoms, No Abdominal Pain, No Nausea, No Vomiting, No Diarrhea Genitourinary Symptoms: No Symptoms, No Dysuria Musculoskeletal: No Symptoms, No Back Pain, No Neck Pain Skin: No Symptoms, No Rash Neurological: No Symptoms, No Dizziness, No Focal Weakness, No Sensory Changes Psychological: No Symptoms Endocrine: No Symptoms Hematologic/Lymphatic: No Symptoms Immunological/Allergic: No Symptoms All Other Systems: Reviewed and Negative - Past Medical History Pertinent Past Medical History: Yes Neurological History: Seizures, Stroke ENT History: No Pertinent History Cardiac History: High Cholesterol, Hypertension Respiratory History: Asthma, COPD Endocrine Medical History: Hyperthyroidism Musculoskeletal History: Fractures GI Medical History: No Pertinent History Psycho-Social History: Depression Female Reproductive Disorders: Cervical Cancer Other Medical History: Pt notes hx of "broken shoulder" that showed up on an XRAY. - Past Surgical History Past Surgical History: Yes Neuro Surgical History: No Pertinent History Cardiac: No Pertinent History Respiratory: No Pertinent History Gastrointestinal: No Pertinent History Genitourinary: No Pertinent History Musculoskeletal: No Pertinent History Female Surgical History: Section Other Surgical History: CERVICAL CANCER REMOVED X 3, X 1, X 1 - Social History Smoking Status: Current every day smoker How long have you smoked: 15 Exposure to second hand smoke: Yes Drug Use: marijuana Patient Lives Alone: No - Nursing Vital Signs Nursing Vital Signs: Initial Vital Signs O2 Sat by Pulse Oximetry 94 L 06/11/24 08:18 Pain Scale Pain Intensity 7 - Physical Exam General Appearance: no apparent distress, alert Eye Exam: PERRL/EOMI, eyes nml inspection Ears, Nose, Throat Exam: normal ENT inspection, TMs normal, pharynx normal, moist mucous membranes Neck Exam: normal inspection, non-tender, supple, full range of motion Respiratory Exam: normal breath sounds, lungs clear, airway intact, No respiratory distress Cardiovascular Exam: regular rate/rhythm, normal heart sounds, normal peripheral pulses Gastrointestinal/Abdomen Exam: soft, normal bowel sounds, No tenderness, No mass Back Exam: normal inspection, normal range of motion, No CVA tenderness, No vertebral tenderness Extremity Exam: normal inspection, normal range of motion, pelvis stable, other (Abrasions to both knees. No deformity. No pain with range of motion. No swelling. The involved lower extremities are both neurovascularly intact distally compartments are soft cap refill less than 2 seconds.) Neurologic Exam: alert, oriented x 3, cooperative, normal mood/affect, sensation nml, No motor deficits Skin Exam: normal color, warm, dry, other (First-degree frostbite right foot ), No rash Lymphatic Exam: No adenopathy SpO2 Interpretation: normal O2 Delivery: Room Air - Course Nursing assessment & vital signs reviewed: Yes EKG Interpreted by Me: RATE (81), Sinus Rhythm, NORMAL AXIS, NORMAL INTERVALS, NORMAL QRS - Radiology Exams Chest X-ray Interpretation: Teleradiologist Report (Nonacute hyperinflated chest with chronic features) Knee X-ray Interpretation: Teleradiologist Report (Left knee no fracture dislocations. Chronic findings) Other X-ray Interpretation: Teleradiologist Report (Right knee no fracture dislocations chronic findings) Foot X-ray Interpretation: Teleradiologist Report (No fracture or dislocation) Ordered Tests: Active Orders 24 hr Category Date Time Status Ict Quality Assurance Engineer STAT Care 06/11/24 08:15 Active Catheter-[place] Wu STAT Care 06/11/24 09:09 Active EKG-ER Only STAT Care 06/11/24 08:14 Active IV Insertion STAT Care 06/11/24 08:14 Active Pulse Oximetry (ED) STAT Care 06/11/24 08:14 Active ACO SDOH Referral ONCE Cons 06/11/24 08:33 Active CHEST 1 VIEW (PORTABLE) Stat Exams 06/11/24 09:26 Completed FOOT (MINIMUM 3 VIEWS) Stat Exams 06/11/24 09:15 Completed KNEE (1 OR 2 VIEW) Stat Exams 06/11/24 09:15 Completed KNEE (3 VIEWS) Stat Exams 06/11/24 09:16 Completed ACETAMINOPHEN Stat Lab 06/11/24 08:20 Completed CBC Q48H Lab 06/12/24 06:00 Ordered CBC Q48H Lab 06/14/24 06:00 Ordered CBC Q48H Lab 06/16/24 06:00 Ordered CBC Q48H Lab 06/18/24 06:00 Ordered CBC Q48H Lab 06/20/24 06:00 Ordered CBC Q48H Lab 06/22/24 06:00 Ordered CBC Q48H Lab 06/24/24 06:00 Ordered CBC W DIFF Stat Lab 06/11/24 08:20 Completed CK (IN-HOUSE) [CK-Creatinine Phosphokinase] Stat Lab 06/11/24 08:40 Completed CMP Stat Lab 06/11/24 08:20 Completed CULTURE,URINE Stat Lab 06/11/24 08:22 Received ETHYL ALCOHOL Stat Lab 06/11/24 08:45 Completed Lactic Acid Stat Lab 06/11/24 08:40 Completed Lactic Acid Stat Lab 06/11/24 10:50 Received PROTIME WITH INR Stat Lab 06/11/24 08:45 Completed PTT Q4H Lab 06/11/24 13:15 Ordered PTT Q4H Lab 06/11/24 17:15 Ordered PTT Q4H Lab 06/11/24 21:15 Ordered PTT Q4H Lab 06/12/24 01:15 Ordered PTT Q4H Lab 06/12/24 05:15 Ordered PTT Q4H Lab 06/12/24 09:15 Ordered PTT Q4H Lab 06/12/24 13:15 Ordered PTT Q4H Lab 06/12/24 17:15 Ordered PTT Q4H Lab 06/12/24 21:15 Ordered PTT Q4H Lab 06/13/24 01:15 Ordered PTT Q4H Lab 06/13/24 05:15 Ordered PTT Stat Lab 06/11/24 08:45 Completed SALICYLATE Stat Lab 06/11/24 08:20 Completed TROPONIN Q4H Lab 06/11/24 08:20 Completed TROPONIN Q4H Lab 06/11/24 12:10 Completed TROPONIN Q4H Lab 06/11/24 16:15 Ordered UA W/RFX UR CULTURE Stat Lab 06/11/24 08:22 Completed Urine Triage Profile Stat Lab 06/11/24 09:34 Completed Medication Summary Generic Name Dose Route Start Last Admin Trade Name Freq PRN Reason Stop Dose Admin Heparin Sodium/Dextrose 25,000 units in 250 mls @ 6.6 mls/hr 06/11/24 09:30 06/11/24 09:24 Heparin 25,000 Units/D5w: Use Order Set Yary IV 07/11/24 09:29 12 units/kg/hr .Q24H ENZO 6.6 mls/hr Administration Protocol 12 UNITS/KG/HR Nitroglycerin/Dextrose 250 mls @ 1.5 mls/hr 06/11/24 09:03 06/11/24 09:27 Ntg 0.2mg/Ml In D5w Glass IV 07/11/24 09:02 5 mcg/min .Q24H PRN 1.5 mls/hr CHEST PAIN Administration Protocol 5 MCG/MIN Sodium Chloride 1,000 mls @ 100 mls/hr 06/11/24 09:30 06/11/24 09:27 Sodium Chloride 0.9% 1000 Ml IV 07/11/24 09:29 250 mls/hr .Q10H ENZO Administration Lactated Ringer's 1,000 mls @ 200 mls/hr 06/11/24 12:00 06/11/24 12:36 Lactated Ringers IV 07/11/24 11:59 200 mls/hr .Q5H ENZO Administration Discontinued Medications Generic Name Dose Route Start Last Admin Trade Name Freq PRN Reason Stop Dose Admin Heparin Sodium (Beef Lung) 3,300 unit 06/11/24 09:03 06/11/24 09:22 Heparin 5000 Units/0.5 Ml 5,000 Unit/0.5 Ml Syr 60 unit/kg (3300 unit) 06/11/24 09:04 3,300 unit IV Administration STAT STA Heparin Sodium (Beef Lung) Confirm 06/11/24 09:12 Heparin 5000 Units/0.5 Ml 5,000 Unit/0.5 Ml Syr Administered 06/11/24 09:13 Dose 5,000 unit .ROUTE .STK-MED ONE Levofloxacin/Dextrose 250 mg in 50 mls @ 50 mls/hr 06/11/24 10:13 06/11/24 11:52 Levaquin 250mg/50ml D5w IV 06/11/24 11:12 50 ml/hr STAT STA 50 mls/hr Administration Levofloxacin/Dextrose Confirm 06/11/24 11:47 Levaquin 250mg/50ml D5w Administered 06/11/24 11:48 Dose 250 mg in 50 mls @ ud IV .STK-MED ONE Lorazepam 1 mg 06/11/24 08:43 06/11/24 08:57 Lorazepam 2 Mg/1 Ml 2 Mg Vial IV 06/11/24 08:44 Not Given STAT ONE Morphine Sulfate 4 mg 06/11/24 08:49 06/11/24 08:52 Morphine Sulfate 4 Mg/Ml Injection IV 06/11/24 08:50 4 mg STAT ONE Administration Morphine Sulfate Confirm 06/11/24 08:50 Morphine Sulfate 4 Mg/Ml Injection Administered 06/11/24 08:51 Dose 4 mg .ROUTE .STK-MED ONE Lab/Rad Data: Laboratory Result Diagrams 06/11/24 08:20 06/11/24 08:20 Laboratory Results 06/11/24 06/11/24 06/11/24 Range/Units 12:10 09:34 08:45 WBC (3.98-10.04) x10^3/uL RBC (3.93-5.22) x10^6/uL Hgb (11.2-15.7) g/dL Hct (34.1-44.9) % MCV (79.4-94.8) fL MCH (25.6-32.2) pg MCHC (32.2-35.5) g/dL RDW (11.7-14.4) % Plt Count (182-369) x10^3/uL MPV (9.4-12.3) fL Gran % (34.0-71.1) % Immature Gran % (Auto) (0.001-0.429) % Nucleat RBC Rel Count (0.00-0.2) % Eos # (Auto) (0.04-0.36) x10^3/uL Immature Gran # (Auto) (0.001-0.031) x10^3u/L Absolute Lymphs (auto) (1.18-3.74) x10^3/uL Absolute Monos (auto) (0.24-0.86) x10^3/uL Absolute Nucleated RBC (0.00-0.012) x10^3u/L Lymphocytes % (19.3-51.7) % Monocytes % (4.7-12.5) % Eosinophils % (0.7-5.8) % Basophils % (0.1-1.2) % Absolute Granulocytes (1.56-6.13) x10^3/uL Basophils # (0.01-0.08) x10^3/uL PT (9.4-12.5) SECONDS INR (0.8-3.0) APTT (25.1-36.5) SECONDS Sodium (135-145) mmol/L Potassium (3.5-5.1) mmol/L Chloride (98-107) mmol/L Carbon Dioxide (22-30) mmol/L Anion Gap (5-15) MEQ/L BUN (7-17) mg/dL Creatinine (0.52-1.04) mg/dL Estimated GFR ML/MIN Glucose (74-106) mg/dL Lactic Acid (0.4-2.0) Calcium (8.4-10.2) mg/dL Total Bilirubin (0.2-1.3) mg/dL AST (14-36) U/L ALT (0-35) U/L Alkaline Phosphatase (38-126) U/L Creatine Kinase (30-135) U/L Troponin I 0.237 H* (0.000-0.033) ng/mL Serum Total Protein (6.3-8.2) g/dL Albumin (3.5-5.0) g/dL Urine Color (Yellow) Urine Appearance (Clear) Urine pH (4.6-8.0) Ur Specific [place] (1.005-1.030) Urine Protein (Negative) Urine Glucose (UA) (Negative) mg/dL Urine Ketones (Negative) Urine Blood (Negative) Urine Nitrite (Negative) Urine Bilirubin (Negative) Urine Urobilinogen (0.2) mg/dL Ur Leukocyte Esterase (Negative) U Hyaline Cast (Auto) (0-2) /LPF Urine Microscopic RBC (0-5) /HPF Urine Microscopic WBC (0-5) /HPF Ur Epithelial Cells (None Seen) /HPF Urine Bacteria (None Seen) /HPF Urine Culture Reflexed (NO) Salicylates (2-20) mg/dL Urine Opiates Level NEGATIVE (NEGATIVE) Ur Methadone NEGATIVE (NEGATIVE) Acetaminophen (10-30) ug/ml Urine Barbiturates NEGATIVE (NEGATIVE) Ur Phencyclidine (PCP) NEGATIVE (NEGATIVE) Urine Amphetamine POSITIVE A (NEGATIVE) U Benzodiazepine Level NEGATIVE (NEGATIVE) Urine Cocaine NEGATIVE (NEGATIVE) Urine Marijuana (THC) POSITIVE A (NEGATIVE) Ethyl Alcohol < 10 (0-10) mg/dL 06/11/24 06/11/24 06/11/24 Range/Units 08:45 08:40 08:40 WBC (3.98-10.04) x10^3/uL RBC (3.93-5.22) x10^6/uL Hgb (11.2-15.7) g/dL Hct (34.1-44.9) % MCV (79.4-94.8) fL MCH (25.6-32.2) pg MCHC (32.2-35.5) g/dL RDW (11.7-14.4) % Plt Count (182-369) x10^3/uL MPV (9.4-12.3) fL Gran % (34.0-71.1) % Immature Gran % (Auto) (0.001-0.429) % Nucleat RBC Rel Count (0.00-0.2) % Eos # (Auto) (0.04-0.36) x10^3/uL Immature Gran # (Auto) (0.001-0.031) x10^3u/L Absolute Lymphs (auto) (1.18-3.74) x10^3/uL Absolute Monos (auto) (0.24-0.86) x10^3/uL Absolute Nucleated RBC (0.00-0.012) x10^3u/L Lymphocytes % (19.3-51.7) % Monocytes % (4.7-12.5) % Eosinophils % (0.7-5.8) % Basophils % (0.1-1.2) % Absolute Granulocytes (1.56-6.13) x10^3/uL Basophils # (0.01-0.08) x10^3/uL PT 10.3 (9.4-12.5) SECONDS INR 0.94 (0.8-3.0) APTT 21.5 L (25.1-36.5) SECONDS Sodium (135-145) mmol/L Potassium (3.5-5.1) mmol/L Chloride (98-107) mmol/L Carbon Dioxide (22-30) mmol/L Anion Gap (5-15) MEQ/L BUN (7-17) mg/dL Creatinine (0.52-1.04) mg/dL Estimated GFR ML/MIN Glucose (74-106) mg/dL Lactic Acid 8.3 H (0.4-2.0) Calcium (8.4-10.2) mg/dL Total Bilirubin (0.2-1.3) mg/dL AST (14-36) U/L ALT (0-35) U/L Alkaline Phosphatase (38-126) U/L Creatine Kinase 4984 H (30-135) U/L Troponin I (0.000-0.033) ng/mL Serum Total Protein (6.3-8.2) g/dL Albumin (3.5-5.0) g/dL Urine Color (Yellow) Urine Appearance (Clear) Urine pH (4.6-8.0) Ur Specific [place] (1.005-1.030) Urine Protein (Negative) Urine Glucose (UA) (Negative) mg/dL Urine Ketones (Negative) Urine Blood (Negative) Urine Nitrite (Negative) Urine Bilirubin (Negative) Urine Urobilinogen (0.2) mg/dL Ur Leukocyte Esterase (Negative) U Hyaline Cast (Auto) (0-2) /LPF Urine Microscopic RBC (0-5) /HPF Urine Microscopic WBC (0-5) /HPF Ur Epithelial Cells (None Seen) /HPF Urine Bacteria (None Seen) /HPF Urine Culture Reflexed (NO) Salicylates (2-20) mg/dL Urine Opiates Level (NEGATIVE) Ur Methadone (NEGATIVE) Acetaminophen (10-30) ug/ml Urine Barbiturates (NEGATIVE) Ur Phencyclidine (PCP) (NEGATIVE) Urine Amphetamine (NEGATIVE) U Benzodiazepine Level (NEGATIVE) Urine Cocaine (NEGATIVE) Urine Marijuana (THC) (NEGATIVE) Ethyl Alcohol (0-10) mg/dL 06/11/24 06/11/24 06/11/24 Range/Units 08:22 08:20 08:20 WBC (3.98-10.04) x10^3/uL RBC (3.93-5.22) x10^6/uL Hgb (11.2-15.7) g/dL Hct (34.1-44.9) % MCV (79.4-94.8) fL MCH (25.6-32.2) pg MCHC (32.2-35.5) g/dL RDW (11.7-14.4) % Plt Count (182-369) x10^3/uL MPV (9.4-12.3) fL Gran % (34.0-71.1) % Immature Gran % (Auto) (0.001-0.429) % Nucleat RBC Rel Count (0.00-0.2) % Eos # (Auto) (0.04-0.36) x10^3/uL Immature Gran # (Auto) (0.001-0.031) x10^3u/L Absolute Lymphs (auto) (1.18-3.74) x10^3/uL Absolute Monos (auto) (0.24-0.86) x10^3/uL Absolute Nucleated RBC (0.00-0.012) x10^3u/L Lymphocytes % (19.3-51.7) % Monocytes % (4.7-12.5) % Eosinophils % (0.7-5.8) % Basophils % (0.1-1.2) % Absolute Granulocytes (1.56-6.13) x10^3/uL Basophils # (0.01-0.08) x10^3/uL PT (9.4-12.5) SECONDS INR (0.8-3.0) APTT (25.1-36.5) SECONDS Sodium (135-145) mmol/L Potassium (3.5-5.1) mmol/L Chloride (98-107) mmol/L Carbon Dioxide (22-30) mmol/L Anion Gap (5-15) MEQ/L BUN (7-17) mg/dL Creatinine (0.52-1.04) mg/dL Estimated GFR ML/MIN Glucose (74-106) mg/dL Lactic Acid (0.4-2.0) Calcium (8.4-10.2) mg/dL Total Bilirubin (0.2-1.3) mg/dL AST (14-36) U/L ALT (0-35) U/L Alkaline Phosphatase (38-126) U/L Creatine Kinase (30-135) U/L Troponin I 0.086 H* (0.000-0.033) ng/mL Serum Total Protein (6.3-8.2) g/dL Albumin (3.5-5.0) g/dL Urine Color Yellow (Yellow) Urine Appearance Cloudy A (Clear) Urine pH 5.5 (4.6-8.0) Ur Specific [place] 1.020 (1.005-1.030) Urine Protein Trace A (Negative) Urine Glucose (UA) Negative (Negative) mg/dL Urine Ketones Trace A (Negative) Urine Blood Negative (Negative) Urine Nitrite Negative (Negative) Urine Bilirubin Negative (Negative) Urine Urobilinogen 1.0 A (0.2) mg/dL Ur Leukocyte Esterase Negative (Negative) U Hyaline Cast (Auto) NONE SEEN (0-2) /LPF Urine Microscopic RBC 0-2 (0-5) /HPF Urine Microscopic WBC 11-20 A (0-5) /HPF Ur Epithelial Cells None Seen (None Seen) /HPF Urine Bacteria Many A (None Seen) /HPF Urine Culture Reflexed YES (NO) Salicylates < 1.0 L (2-20) mg/dL Urine Opiates Level (NEGATIVE) Ur Methadone (NEGATIVE) Acetaminophen < 10 L (10-30) ug/ml Urine Barbiturates (NEGATIVE) Ur Phencyclidine (PCP) (NEGATIVE) Urine Amphetamine (NEGATIVE) U Benzodiazepine Level (NEGATIVE) Urine Cocaine (NEGATIVE) Urine Marijuana (THC) (NEGATIVE) Ethyl Alcohol (0-10) mg/dL 06/11/24 06/11/24 Range/Units 08:20 08:20 WBC 10.2 H (3.98-10.04) x10^3/uL RBC 3.75 L (3.93-5.22) x10^6/uL Hgb 11.6 (11.2-15.7) g/dL Hct 33.4 L (34.1-44.9) % MCV 89.1 (79.4-94.8) fL MCH 30.9 (25.6-32.2) pg MCHC 34.7 (32.2-35.5) g/dL RDW 14.5 H (11.7-14.4) % Plt Count 333 (182-369) x10^3/uL MPV 11.1 (9.4-12.3) fL Gran % 77.2 H (34.0-71.1) % Immature Gran % (Auto) 0.6 H (0.001-0.429) % Nucleat RBC Rel Count 0.0 (0.00-0.2) % Eos # (Auto) 0.06 (0.04-0.36) x10^3/uL Immature Gran # (Auto) 0.06 H (0.001-0.031) x10^3u/L Absolute Lymphs (auto) 1.67 (1.18-3.74) x10^3/uL Absolute Monos (auto) 0.49 (0.24-0.86) x10^3/uL Absolute Nucleated RBC 0.00 (0.00-0.012) x10^3u/L Lymphocytes % 16.3 L (19.3-51.7) % Monocytes % 4.8 (4.7-12.5) % Eosinophils % 0.6 L (0.7-5.8) % Basophils % 0.5 (0.1-1.2) % Absolute Granulocytes 7.90 H (1.56-6.13) x10^3/uL Basophils # 0.05 (0.01-0.08) x10^3/uL PT (9.4-12.5) SECONDS INR (0.8-3.0) APTT (25.1-36.5) SECONDS Sodium 135 (135-145) mmol/L Potassium 4.0 (3.5-5.1) mmol/L Chloride 93 L (98-107) mmol/L Carbon Dioxide 20 L (22-30) mmol/L Anion Gap 26.3 H (5-15) MEQ/L BUN 21 H (7-17) mg/dL Creatinine 1.78 H (0.52-1.04) mg/dL Estimated GFR 31.9 ML/MIN Glucose 158 H (74-106) mg/dL Lactic Acid (0.4-2.0) Calcium 10.4 H (8.4-10.2) mg/dL Total Bilirubin 1.20 (0.2-1.3) mg/dL AST 182 H (14-36) U/L ALT 75 H (0-35) U/L Alkaline Phosphatase 164 H (38-126) U/L Creatine Kinase (30-135) U/L Troponin I (0.000-0.033) ng/mL Serum Total Protein 8.3 H (6.3-8.2) g/dL Albumin 5.4 H (3.5-5.0) g/dL Urine Color (Yellow) Urine Appearance (Clear) Urine pH (4.6-8.0) Ur Specific [place] (1.005-1.030) Urine Protein (Negative) Urine Glucose (UA) (Negative) mg/dL Urine Ketones (Negative) Urine Blood (Negative) Urine Nitrite (Negative) Urine Bilirubin (Negative) Urine Urobilinogen (0.2) mg/dL Ur Leukocyte Esterase (Negative) U Hyaline Cast (Auto) (0-2) /LPF Urine Microscopic RBC (0-5) /HPF Urine Microscopic WBC (0-5) /HPF Ur Epithelial Cells (None Seen) /HPF Urine Bacteria (None Seen) /HPF Urine Culture Reflexed (NO) Salicylates (2-20) mg/dL Urine Opiates Level (NEGATIVE) Ur Methadone (NEGATIVE) Acetaminophen (10-30) ug/ml Urine Barbiturates (NEGATIVE) Ur Phencyclidine (PCP) (NEGATIVE) Urine Amphetamine (NEGATIVE) U Benzodiazepine Level (NEGATIVE) Urine Cocaine (NEGATIVE) Urine Marijuana (THC) (NEGATIVE) Ethyl Alcohol (0-10) mg/dL - Progress Progress: improved Progress Note: Patient accepted by [facility] ER physician Dr. Godwin at 11:23 AM 06/11/24 11:23 64-year-old female presents to our ED via EMS for evaluation. Patient was found down. The length of time patient was outdoors is unknown. Upon arrival to our ED patient was observed to be hyperthermic tachycardic patient was shivering. Patient has what appears to be early frostbite of her right foot. She has abrasions to both knees. X-rays of her foot and both knees are negative. Chest x-ray negative as well. Laboratory workup reveals CK of 4900 with acute kidney injury likely secondary to rhabdo. Patient's cardiac troponin elevated possibly in part due to kidney function however EKG reveals anterior T wave inversions indicating ischemia. Patient's repeat troponin increased from 0.08-0.2. Repeat EKG shows no significant change. Patient denies chest pain. She is currently on a nitro drip and heparin as well. UA significant for urinary tract infection. Rocephin infused. Patient currently on her second liter of IV fluids. She received 1 L of normal saline and is currently on lactated ringer. Patient's core body temperature is improving. Original core body temp was 92. She is currently at 97. Patient reassessed. She appears to be comfortable. No active pain. Patient will be transferred for higher level of care. Plan of care discussed with patient. She agrees to transfer to [facility] for further evaluation and treatment. Lactic acid 8.3 Portions of this note were created with voice recognition technology. There may be grammatical, spelling, punctuation or sound alike errors Complexity of problem addressed is moderate acute complicated. Critical care to greater than 194 minutes. Immediate intervention indicated to prevent further deterioration. Patient will be transferred to higher level of care. Complex of data reviewed and analyzed extensive. Test ordered chest reviewed results analyzed and correlated clinically with history and physical exam. Findings d iscussed with ER physician Dr. Godwin who accepts transfer at 11:23 AM. Risk of complication and or risk of morbidity/mortality of patient management is high. Patient requires hospitalization/transfer to higher level of care. Vital stable. Time spent to transfer patient is approximately 30 minutes. Plan of care established for shared decision making. No social determinants of health present to impede follow-up. Portions of this note were created with voice recognition technology. There may be grammatical, spelling, punctuation or sound alike errors 06/11/24 12:58 Counseled pt/family regarding: lab results, diagnosis, rad results - Departure Departure Disposition: Transfer Clinical Impression: Hypothermia, ACS (acute coronary syndrome), NSTEMI (non-ST elevated myocardial infarction), Chest pain, Frostbite of right foot, Noncompliance with medication regimen, Acute renal injury, Elevated troponin, Lactic acidosis, High anion gap metabolic acidosis, Dehydration, UTI (urinary tract infection), Amphetamine use, Marijuana use, Rhabdomyolysis Condition: Stable Critical Care Time: No Critical Care Time(excluding separately billable procedures): Critical > 194 mins Referrals: KULDEEP BEEBE [ACTIVE STAFF] - Follow up/PCP as directed
[2024-06-11 08:29] LABS: BASOPHIL % 0.5 % (0.1-1.2); Basophil (Absolute #) 0.05 x10^3/uL (0.01-0.08); Eosinophil % 0.6 % (0.7-5.8); Eosinophil (Absolute #) 0.06 x10^3/uL (0.04-0.36); Hematocrit 33.4 % (34.1-44.9); Hemoglobin 11.6 g/dL (11.2-15.7); IMMATURE GRAN # 0.06 x10^3u/L (0.001-0.031); IMMATURE GRAN % 0.6 % (0.001-0.429); Lymphocyte (Absolute #) 1.67 x10^3/uL (1.18-3.74); Lymphocytes % 16.3 % (19.3-51.7); Mean Cell Volume 89.1 fL (79.4-94.8); Mean Corpuscular Hemoglobin 30.9 pg (25.6-32.2); Mean Corpuscular Hgb Concent. 34.7 g/dL (32.2-35.5); Mean Platelet Volume 11.1 fL (9.4-12.3); Monocyte (Absolute #) 0.49 x10^3/uL (0.24-0.86); Monocytes % 4.8 % (4.7-12.5); Neutrophil % 77.2 % (34.0-71.1); Platelet Count 333 x10^3/uL (182-369); Red Blood Count 3.75 x10^6/uL (3.93-5.22); Red Cell Distribution Width 14.5 % (11.7-14.4); White Blood Count 10.2 x10^3/uL (3.98-10.04)
[2024-06-11 08:33] VITALS: TEMP 92
[2024-06-11 08:45] LABS: ALBUMIN 5.4 g/dL (3.5-5.0); ANION GAP 26.3 MEQ/L (5-15); BILIRUBIN,TOTAL 1.2 mg/dL (0.2-1.3); Calcium 10.4 mg/dL (8.4-10.2); Creatinine 1 1.78 mg/dL (0.52-1.04); EST GLOMERULAR FILTRATION RATE 31.9 ML/MIN; Total Protein 8.3 g/dL (6.3-8.2)
[2024-06-11] MEDS ORDERED: MORPHINE SULFATE 4 MG INJ ONE (08:50)
[2024-06-11] MEDS: MORPHINE SULFATE 4 MG INJ IV ONE (08:52)
[2024-06-11] MEDS: Ativan 2 MG/1 ML VIAL IV ONE (08:57)
[2024-06-11] MEDS ORDERED: Heparin 25,000 units/D5W: USE ORDER SET PROTO 25,000 UNITS/250 ML BAG IV ONE (09:09)
[2024-06-11] MEDS ORDERED: Ntg 0.2MG/Ml in D5W GLASS*** 250 ML IV ONE ×2 (09:09→09:12)
[2024-06-11] MEDS ORDERED: HEPARIN 5000 UNITS/0.5 ML (HIGH RISK MED) ONE (09:12)
[2024-06-11] MEDS: HEPARIN 5000 UNITS/0.5 ML (HIGH RISK MED) IV STA (09:22)
[2024-06-11] MEDS: Heparin 25,000 units/D5W: USE ORDER SET PROTO 25,000 UNITS/250 ML BAG IV SCH (09:24)
[2024-06-11] MEDS ORDERED: Sodium Chloride 0.9% 1000 ML 1,000 ML ONE (09:26)
[2024-06-11] MEDS: Ntg 0.2MG/Ml in D5W GLASS*** 250 ML IV PRN (09:27)
[2024-06-11] MEDS: Sodium Chloride 0.9% 1000 ML 1,000 ML IV SCH (09:27)
[2024-06-11 09:42] LABS: INR 0.94 (0.8-3.0); PROTIME 10.3 SECONDS (9.4-12.5); PTT 21.5 SECONDS (25.1-36.5)
[2024-06-11 09:46] LABS: Appearance Cloudy (Clear); Bacteria Many /HPF (None Seen); Bilirubin Negative (Negative); Blood Negative (Negative); Epithelial Cells None Seen /HPF (None Seen); Glucose, Urine Negative (Negative); Hyaline Casts NONE SEEN /LPF (0-2); Ketones Trace (Negative); Leukocyte Esterase Negative (Negative); Nitrite Negative (Negative); Ph 5.5 (4.6-8.0); Protein,Urine Dip Trace (Negative); RBC 0-2 /HPF (0-5)
[2024-06-11 09:54] LABS: Amphetamine,Urine POSITIVE (NEGATIVE); Barbiturate,Urine NEGATIVE (NEGATIVE); Benzodiazepine,Urine NEGATIVE (NEGATIVE); Cocaine,Urine NEGATIVE (NEGATIVE); Methadone,Urine NEGATIVE (NEGATIVE); Opiate,Urine NEGATIVE (NEGATIVE); PCP,Urine NEGATIVE (NEGATIVE); THC,Urine POSITIVE (NEGATIVE)
[2024-06-11 10:07] LABS: ACETAMINOPHEN < 10 ug/ml (10-30); SALICYLATE < 1.0 mg/dL (2-20)
--- NOTE | 2024-06-11 10:37 | XRAY ---
Indication: Hypoxia. Comparison: March 08, 2018 Portable chest again hyperinflated and clear with incidental tiny bibasilar calcified granulomas. Heart not enlarged. Bony thorax intact again with osteopenia, degenerative changes, and old left 7 rib fracture. Impression: Again nonacute hyperinflated chest with chronic features.
--- NOTE | 2024-06-11 10:37 | XRAY ---
Indication: Pain following fall. Comparison: None AP/crosstable lateral right knee demonstrates tiny suprapatella spurring and mild scattered vascular calcifications. No other bony, articular, or soft tissue abnormalities.
--- NOTE | 2024-06-11 10:39 | XRAY ---
Indication: Pain following fall. Comparison: None 3 view left knee demonstrates minimal medial joint space narrowing/spurring, tiny suprapatella spurring, and mild scattered vascular calcifications. No other bony, articular, or soft tissue abnormalities.
--- NOTE | 2024-06-11 10:39 | XRAY ---
Indication: Pain. Comparison: January 22, 2017 3 nonweightbearing views right foot obtained. Again no bony, articular, or soft tissue abnormalities.
[2024-06-11] MEDS ORDERED: Levaquin 250MG/50ML D5W 250 MG/50 ML BAG IV ONE (11:47)
[2024-06-11] MEDS: Levaquin 250MG/50ML D5W 250 MG/50 ML BAG IV STA (11:52)
[2024-06-11 11:56] VITALS: PULSE 81; RESP 9
[2024-06-11] MEDS ORDERED: Lactated Ringers 1,000 ML IV ONE (12:00)
[2024-06-11] MEDS: Lactated Ringers 1,000 ML IV SCH (12:36)
[2024-06-11 13:07] VITALS: BP 141/74; O2SAT 95
== END 2024-06-11 13:28 | disposition short-term general hospital (02) ==
LOC: ED 08:09
DX: T68.XXXA Hypothermia, initial encounter (principal); I24.9 Acute ischemic heart disease, unspecified; I21.4 Non-ST elevation (NSTEMI) myocardial infarction; R07.9 Chest pain, unspecified; T33.821A Superficial frostbite of right foot, initial encounter; X31.XXXA Exposure to excessive natural cold, initial encounter; Z91.148 Patient's other noncompliance with medication regimen for other reason; N17.9 Acute kidney failure, unspecified; R77.8 Other specified abnormalities of plasma proteins; E87.20 Acidosis, unspecified; E86.0 Dehydration; N39.0 Urinary tract infection, site not specified; F15.90 Other stimulant use, unspecified, uncomplicated; F12.90 Cannabis use, unspecified, uncomplicated; M62.82 Rhabdomyolysis; Z79.899 Other long term (current) drug therapy; Z72.0 Tobacco use; Z59.48 Other specified lack of adequate food; Z59.11 Inadequate housing environmental temperature; Z59.12 Inadequate housing utilities; Z59.87 Material hardship due to limited financial resources, not elsewhere classified; Z59.82 Transportation insecurity; Z63.9 Problem related to primary support group, unspecified
CPT/HCPCS: 36415; 51702; 71045; 73560; 73562; 73630; 80053; 80143; 80179; 80307; 81001; 82077; 82550; 83605; 84484; 85025; 85610; 85730; 87077; 87086; 87186; 93005; 93041; 94760; 96365; 96374; 96375; 99285; 99291; 99292; J1644; J1956; J2270

== ENCOUNTER 2024-06-20 20:53 | Observation (INO) | payer OTHER ==
--- NOTE | 2024-06-20 20:59 | ERPHSYRPT ---
- History of Present Illness Time Seen by Provider: 06/20/24 20:59 Source: patient, EMS, old records Exam Limitations: clinical condition Physician History: This is a 64-year-old white female patient brought to the emergency department by the paramedics because of confusion and she was found down on the ground after wandering outside in the cold. Patient's temperature is 93.9 F rectally. Her presentation is similar to the presentation to the emergency department d ated 06/11/2024. Patient was discharged to home yesterday from [facility], apparently, having had a cardiac stent placed. Patient denies chest pain and she denies shortness of breath at this time. Her NIHSS score was 3. Patient had a Holter monitor in place. Patient states she is living with her son and there were some issues concerning lack of heat in the home. Patient has a history of hypertension, hyperlipidemia, gastroesophageal reflux disease, hypothyroidism, depression, COPD, anxiety, seizure disorder and history of stroke in the past. History of marijuana and methamphetamine use as recent as 06/11/2024 Timing/Duration: today Severity: moderate Character of Deficits: other (Fused) Deficits: decrease ability to stand Baseline/Normal Cognition: alert but confused Current Cognition: alert but confused Baseline Gait: walks w/o assistance Associated Symptoms: confusion, weakness, No vision changes, No chest pain Allergies/Adverse Reactions: amoxicillin [Amoxicillin] Allergy (Severe, Verified 06/21/24 00:09) Difficulty Breathing states took 1/2 pill and went into anaphylactic shock iodine Allergy (Verified 06/21/24 00:09) Rash Penicillins Allergy (Verified 06/21/24 00:09) Sulfa (Sulfonamide Antibiotics) Allergy (Verified 06/21/24 00:09) Home Medications: Omeprazole Magnesium [Prilosec Otc] 20 mg PO DAILY 12/31/13 [History] Albuterol Sulfate [Proair Hfa] 2 puff IH Q4HPRN PRN 07/15/16 [History] Cyclobenzaprine HCl 10 mg [Cyclobenzaprine 10 MG] 10 mg PO TID PRN PRN 07/15/16 [History] Potassium Chloride Tab* [Klor Con 10 MEQ] 10 meq PO DAILY 07/15/16 [History] lisinopriL [Zestril 40 mg] 40 mg PO DAILY 07/15/16 [History] Levothyroxine Sodium 100 Mcg [Synthroid 100 Mcg] 125 mcg PO DAILY 04/21/18 [History] ALPRAZolam 1 MG [Xanax 1 mg] 1 mg PO BID PRN 05/09/18 [History] Alendronate Sodium 70 mg [Fosamax 70 MG] 70 mg PO UD 05/09/18 [History] Escitalopram Oxalate [Lexapro] 20 mg PO DAILY 05/09/18 [History] Furosemide 20 mg [Lasix 20 mg] 20 mg PO DAILY 05/09/18 [History] Montelukast Sodium 10 mg [Singulair 10 MG] 10 mg PO DAILY 05/09/18 [History] Simvastatin 20Mg [Zocor 20Mg] 20 mg PO DAILY 05/09/18 [History] Hx Tetanus, Diphtheria Vaccination/Date Given: No Hx Influenza Vaccination/Date Given: Yes Hx Pneumococcal Vaccination/Date Given: No Travel Risk - International Travel Have you traveled outside of the country in past 3 weeks: No - Emerging Infectious Disease Are you exhibiting symptoms associated with any current EIDs: No - Review of Systems Constitutional: Weakness Eyes: No Symptoms Ears, Nose, & Throat: No Symptoms Respiratory: No Symptoms Cardiac: No Symptoms Abdominal/Gastrointestinal: No Symptoms Genitourinary Symptoms: No Symptoms Musculoskeletal: No Symptoms Skin: No Symptoms Neurological: Other (Confusion) Psychological: No Symptoms Endocrine: No Symptoms Hematologic/Lymphatic: No Symptoms Immunological/Allergic: No Symptoms All Other Systems: Reviewed and Negative - Past Medical History Pertinent Past Medical History: Yes Neurological History: Seizures, Stroke ENT History: No Pertinent History Cardiac History: High Cholesterol, Hypertension Respiratory History: Asthma, COPD Endocrine Medical History: Hyperthyroidism Musculoskeletal History: Fractures GI Medical History: No Pertinent History Psycho-Social History: Depression Female Reproductive Disorders: Cervical Cancer Other Medical History: Pt notes hx of "broken shoulder" that showed up on an XRAY. - Past Surgical History Past Surgical History: Yes Neuro Surgical History: No Pertinent History Cardiac: No Pertinent History Respiratory: No Pertinent History Gastrointestinal: No Pertinent History Genitourinary: No Pertinent History Musculoskeletal: No Pertinent History Female Surgical History: Section Other Surgical History: CERVICAL CANCER REMOVED X 3, X 1, X 1 - Social History Smoking Status: Current every day smoker How long have you smoked: 15 Exposure to second hand smoke: Yes Drug Use: marijuana Patient Lives Alone: No - Social Determinants of Health Will the patient participate in the screening: Yes Do you worry about a steady place to live?: No In the past 12 months,have you had to go without utilities?: Yes Transportation Issues: Yes Has anyone in your support network made you feel unsafe?: Yes Have you or anyone in your house had to go w/o enough food: Yes - Nursing Vital Signs Nursing Vital Signs: Initial Vital Signs Temperature 93.9 F 06/20/24 21:14 Pulse Rate 74 06/20/24 21:14 Respiratory Rate 18 06/20/24 21:14 Blood Pressure 146/96 06/20/24 21:14 O2 Sat by Pulse Oximetry 97 06/20/24 21:14 Pain Scale Pain Intensity 9 - [place] Coma Scale Best Eye Response ([place]): (4) open spontaneously Best Verbal Response ([place]): (4) confused conversation Best Motor Response ([place]): (6) obeys commands [place] Total: 14 - Physical Exam General Appearance: no apparent distress, alert, anxiety Eye Exam: bilateral eye: normal inspection, PERRL, EOMI Ears, Nose, Throat Exam: normal ENT inspection, dry mucous membranes Neck Exam: normal inspection, non-tender, supple, full range of motion Respiratory: normal breath sounds, lungs clear, airway intact, No chest tenderness, No respiratory distress Cardiovascular: regular rate/rhythm, normal heart sounds, normal peripheral pulses Gastrointestinal: soft, normal bowel sounds, No tenderness Pelvic Exam: not done Rectal Exam: not done Back Exam: normal inspection Extremity Exam: normal inspection, normal range of motion, pelvis stable 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, other (Confused speech) toucher up Exam: normal hearing, PERRL, tongue midline Skin Exam: pale, other (Will skin) SpO2 Interpretation: normal O2 Delivery: Room Air - Course Nursing assessment & vital signs reviewed: Yes EKG Interpreted by Me: RATE (74), Sinus Rhythm, NORMAL AXIS, NORMAL INTERVALS, NORMAL QRS, Other (No acute ischemic changes on today's twelve-lead EKG. QTc is 485. When compared to the twelve-lead EKG dated on 06/11/2024, there is resolution of prolonged QT and prolonged VT interval.) Ordered Tests: Active Orders 24 hr Category Date Time Status Bus Van Driver STAT Care 06/20/24 21:13 Active EKG-ER Only STAT Care 06/20/24 21:36 Active IV Insertion-2nd Peripheral STAT Care 06/20/24 22:30 Active NPO (ED) STAT Care 06/20/24 21:13 Active POCT Glucose Check STAT Care 06/20/24 21:13 Active ACO SDOH Referral ONCE Cons 06/20/24 21:44 Active HEAD WITHOUT CONTRAST [CT] Stat Exams 06/20/24 21:03 Taken CBC W DIFF Stat Lab 06/20/24 21:52 Completed CK-Creatinine Phosphokinase Stat Lab 06/20/24 21:55 Completed CMP Stat Lab 06/20/24 21:52 Completed CULTURE,URINE Stat Lab 06/20/24 21:48 Received Lactic Acid Stat Lab 06/20/24 22:10 Completed MAGNESIUM Stat Lab 06/20/24 21:52 Completed NT PRO BNPII Stat Lab 06/20/24 21:52 Completed TROPONIN Q4H Lab 06/20/24 21:52 Completed TROPONIN Q4H Lab 06/21/24 00:00 Completed TROPONIN Q4H Lab 06/21/24 05:45 Ordered TSH [TSH, 3RD Generation] Stat Lab 06/20/24 21:55 Completed UA W/RFX UR CULTURE Stat Lab 06/20/24 21:48 Completed Urine Triage Profile Stat Lab 06/21/24 00:00 Received Transfer Order Routine Transfer 06/21/24 Ordered Medication Summary Discontinued Medications Generic Name Dose Route Start Last Admin Trade Name Freq PRN Reason Stop Dose Admin Sodium Chloride 1,000 mls @ 999 mls/hr 06/20/24 21:33 06/20/24 23:31 Sodium Chloride 0.9% 1000 Ml IV 06/20/24 22:33 Infused .Q1H1M STA Infusion Sodium Chloride Confirm 06/20/24 22:00 Sodium Chloride 0.9% 1000 Ml Administered 06/20/24 22:01 Dose 1,000 mls @ ud .ROUTE .STK-MED ONE Lab/Rad Data: Laboratory Result Diagrams 06/20/24 21:52 06/20/24 21:52 Laboratory Results 06/21/24 06/20/24 06/20/24 Range/Units 00:00 22:10 21:55 WBC (3.98-10.04) x10^3/uL RBC (3.93-5.22) x10^6/uL Hgb (11.2-15.7) g/dL Hct (34.1-44.9) % MCV (79.4-94.8) fL MCH (25.6-32.2) pg MCHC (32.2-35.5) g/dL RDW (11.7-14.4) % Plt Count (182-369) x10^3/uL MPV (9.4-12.3) fL Gran % (34.0-71.1) % Immature Gran % (Auto) (0.001-0.429) % Nucleat RBC Rel Count (0.00-0.2) % Eos # (Auto) (0.04-0.36) x10^3/uL Immature Gran # (Auto) (0.001-0.031) x10^3u/L Absolute Lymphs (auto) (1.18-3.74) x10^3/uL Absolute Monos (auto) (0.24-0.86) x10^3/uL Absolute Nucleated RBC (0.00-0.012) x10^3u/L Lymphocytes % (19.3-51.7) % Monocytes % (4.7-12.5) % Eosinophils % (0.7-5.8) % Basophils % (0.1-1.2) % Absolute Granulocytes (1.56-6.13) x10^3/uL Basophils # (0.01-0.08) x10^3/uL Sodium (135-145) mmol/L Potassium (3.5-5.1) mmol/L Chloride (98-107) mmol/L Carbon Dioxide (22-30) mmol/L Anion Gap (5-15) MEQ/L BUN (7-17) mg/dL Creatinine (0.52-1.04) mg/dL Estimated GFR ML/MIN Glucose (74-106) mg/dL Lactic Acid 0.9 (0.4-2.0) Calcium (8.4-10.2) mg/dL Magnesium (1.6-2.3) mg/dL Total Bilirubin (0.2-1.3) mg/dL AST (14-36) U/L ALT (0-35) U/L Alkaline Phosphatase (38-126) U/L Creatine Kinase (30-135) U/L Troponin I 0.086 H* (0.000-0.033) ng/mL NT-Pro-B Natriuret Pep (<300) pg/mL Serum Total Protein (6.3-8.2) g/dL Albumin (3.5-5.0) g/dL Free T4 0.48 L (0.78-2.19) ng/dL TSH 3rd Generation (0.470-4.680) mIU/L Urine Color (Yellow) Urine Appearance (Clear) Urine pH (4.6-8.0) Ur Specific [place] (1.005-1.030) Urine Protein (Negative) Urine Glucose (UA) (Negative) mg/dL Urine Ketones (Negative) Urine Blood (Negative) Urine Nitrite (Negative) Urine Bilirubin (Negative) Urine Urobilinogen (0.2) mg/dL Ur Leukocyte Esterase (Negative) U Hyaline Cast (Auto) (0-2) /LPF Urine Microscopic RBC (0-5) /HPF Urine Microscopic WBC (0-5) /HPF Ur Epithelial Cells (None Seen) /HPF Urine Bacteria (None Seen) /HPF Urine Culture Reflexed (NO) 06/20/24 06/20/24 06/20/24 Range/Units 21:55 21:52 21:52 WBC (3.98-10.04) x10^3/uL RBC (3.93-5.22) x10^6/uL Hgb (11.2-15.7) g/dL Hct (34.1-44.9) % MCV (79.4-94.8) fL MCH (25.6-32.2) pg MCHC (32.2-35.5) g/dL RDW (11.7-14.4) % Plt Count (182-369) x10^3/uL MPV (9.4-12.3) fL Gran % (34.0-71.1) % Immature Gran % (Auto) (0.001-0.429) % Nucleat RBC Rel Count (0.00-0.2) % Eos # (Auto) (0.04-0.36) x10^3/uL Immature Gran # (Auto) (0.001-0.031) x10^3u/L Absolute Lymphs (auto) (1.18-3.74) x10^3/uL Absolute Monos (auto) (0.24-0.86) x10^3/uL Absolute Nucleated RBC (0.00-0.012) x10^3u/L Lymphocytes % (19.3-51.7) % Monocytes % (4.7-12.5) % Eosinophils % (0.7-5.8) % Basophils % (0.1-1.2) % Absolute Granulocytes (1.56-6.13) x10^3/uL Basophils # (0.01-0.08) x10^3/uL Sodium 132 L (135-145) mmol/L Potassium 4.2 (3.5-5.1) mmol/L Chloride 96 L (98-107) mmol/L Carbon Dioxide 28 (22-30) mmol/L Anion Gap 12.5 (5-15) MEQ/L BUN 24 H (7-17) mg/dL Creatinine 1.78 H (0.52-1.04) mg/dL Estimated GFR 31.9 ML/MIN Glucose 94 (74-106) mg/dL Lactic Acid (0.4-2.0) Calcium 9.5 (8.4-10.2) mg/dL Magnesium 2.7 H (1.6-2.3) mg/dL Total Bilirubin 0.70 (0.2-1.3) mg/dL AST 82 H (14-36) U/L ALT 48 H (0-35) U/L Alkaline Phosphatase 129 H (38-126) U/L Creatine Kinase 629 H (30-135) U/L Troponin I 0.099 H* (0.000-0.033) ng/mL NT-Pro-B Natriuret Pep 3650 (<300) pg/mL Serum Total Protein 6.9 (6.3-8.2) g/dL Albumin 4.4 (3.5-5.0) g/dL Free T4 (0.78-2.19) ng/dL TSH 3rd Generation 246.270 H (0.470-4.680) mIU/L Urine Color (Yellow) Urine Appearance (Clear) Urine pH (4.6-8.0) Ur Specific [place] (1.005-1.030) Urine Protein (Negative) Urine Glucose (UA) (Negative) mg/dL Urine Ketones (Negative) Urine Blood (Negative) Urine Nitrite (Negative) Urine Bilirubin (Negative) Urine Urobilinogen (0.2) mg/dL Ur Leukocyte Esterase (Negative) U Hyaline Cast (Auto) (0-2) /LPF Urine Microscopic RBC (0-5) /HPF Urine Microscopic WBC (0-5) /HPF Ur Epithelial Cells (None Seen) /HPF Urine Bacteria (None Seen) /HPF Urine Culture Reflexed (NO) 06/20/24 06/20/24 Range/Units 21:52 21:48 WBC 8.8 (3.98-10.04) x10^3/uL RBC 2.49 L (3.93-5.22) x10^6/uL Hgb 7.9 L (11.2-15.7) g/dL Hct 23.6 L (34.1-44.9) % MCV 94.8 (79.4-94.8) fL MCH 31.7 (25.6-32.2) pg MCHC 33.5 (32.2-35.5) g/dL RDW 16.3 H (11.7-14.4) % Plt Count 328 (182-369) x10^3/uL MPV 10.9 (9.4-12.3) fL Gran % 68.7 (34.0-71.1) % Immature Gran % (Auto) 0.7 H (0.001-0.429) % Nucleat RBC Rel Count 0.0 (0.00-0.2) % Eos # (Auto) 0.20 (0.04-0.36) x10^3/uL Immature Gran # (Auto) 0.06 H (0.001-0.031) x10^3u/L Absolute Lymphs (auto) 1.66 (1.18-3.74) x10^3/uL Absolute Monos (auto) 0.80 (0.24-0.86) x10^3/uL Absolute Nucleated RBC 0.00 (0.00-0.012) x10^3u/L Lymphocytes % 18.9 L (19.3-51.7) % Monocytes % 9.1 (4.7-12.5) % Eosinophils % 2.3 (0.7-5.8) % Basophils % 0.3 (0.1-1.2) % Absolute Granulocytes 6.01 (1.56-6.13) x10^3/uL Basophils # 0.03 (0.01-0.08) x10^3/uL Sodium (135-145) mmol/L Potassium (3.5-5.1) mmol/L Chloride (98-107) mmol/L Carbon Dioxide (22-30) mmol/L Anion Gap (5-15) MEQ/L BUN (7-17) mg/dL Creatinine (0.52-1.04) mg/dL Estimated GFR ML/MIN Glucose (74-106) mg/dL Lactic Acid (0.4-2.0) Calcium (8.4-10.2) mg/dL Magnesium (1.6-2.3) mg/dL Total Bilirubin (0.2-1.3) mg/dL AST (14-36) U/L ALT (0-35) U/L Alkaline Phosphatase (38-126) U/L Creatine Kinase (30-135) U/L Troponin I (0.000-0.033) ng/mL NT-Pro-B Natriuret Pep (<300) pg/mL Serum Total Protein (6.3-8.2) g/dL Albumin (3.5-5.0) g/dL Free T4 (0.78-2.19) ng/dL TSH 3rd Generation (0.470-4.680) mIU/L Urine Color Yellow (Yellow) Urine Appearance Clear (Clear) Urine pH 7.5 (4.6-8.0) Ur Specific [place] 1.015 (1.005-1.030) Urine Protein 30 (Negative) Urine Glucose (UA) Negative (Negative) mg/dL Urine Ketones Negative (Negative) Urine Blood Negative (Negative) Urine Nitrite Negative (Negative) Urine Bilirubin Negative (Negative) Urine Urobilinogen 0.2 (0.2) mg/dL Ur Leukocyte Esterase Negative (Negative) U Hyaline Cast (Auto) 3-5 A (0-2) /LPF Urine Microscopic RBC 0-2 (0-5) /HPF Urine Microscopic WBC 0-2 (0-5) /HPF Ur Epithelial Cells None Seen (None Seen) /HPF Urine Bacteria None Seen (None Seen) /HPF Urine Culture Reflexed NO (NO) - Progress Progress: improved Progress Note: 06/20/24 22:05 My medical decision making and the assignment of moderate to high complexity is based on review of the patient's past medical history, review of the patient's medication list, review the patient drug allergy list, history present illness and physical findings on examination. The workup in this patient includes placement of a intravenous line, infusion of warm fluids, bear hugger, placement of a temperature monitoring Wu catheter, CBC, CMP, twelve-lead EKG, troponin level, magnesium level, CT scan of the head and urinalysis. 06/20/24 23:36 Differential diagnosis includes urinary tract infection, dehydration, hypothermia, thyroid abnormalities, anemia, electrolyte abnormalities, acute intracranial abnormality The CT scan of the head without contrast was interpreted by the radiologist and I reviewed the impression. This study is compared to similar study dated 04/21/2018. There is new global atrophy. There is moderate degenerative micro ischemia. There is small, old bilateral occipital infarcts. No acute findings. 06/21/24 00:06 I reviewed the outside facility inpatient notes from [facility] dated 06/11 [address] Subramanian was the drapery seamstress that performed a PCI/cardiac stent placement in the LAD mid level. Patient has been on Plavix. Patient had a hemoglobin of 6.9 on 06/17/2024 was given 1 unit of packed red blood cells and onto 06/19/2024, patient's hemoglobin just before discharge was 8.0. Patient had a TSH level of 264. during her hospital stay there. 06/21/24 00:22 I interpreted the second, repeat twelve-lead EKG performed on 06/21/2024 at 0004. Heart rate is 72 bpm. Normal sinus rhythm. Borderline prolonged VT interval. Normal axis deviation and normal QRS. QTc is 463. No acute ischemia 06/21/24 01:[address] Yang, our telehospitalist on-call at this time. I reviewed the patient past medical history, presenting complaint, physical examination findings and workup results. We will admit this patient and provide her with a bear hugger, warm intravenous fluids and repeat labs. Counseled pt/family regarding: lab results, diagnosis, need for follow-up, rad results Medical Desision Making - Independent Historian Additional History obtained from: [employer] Assistant/EMT - External Record(s) Reviewed Records reviewed as a part of evaluation & management: Inpatient, Discharge Summary - Diagnostic Testing Diagnostic test were ordered, analyzed, and reviewed by me: Yes Radiological Interpretation: Reviewed by me, Teleradiologist Report - Risk of complications The pt has a high risk of morbidity or mortality based on: Decision regarding hospitilization or escalation of hosp level of care - Departure Departure Disposition: In-patient Admission Clinical Impression: Confusion, Hypothermia, Hypothyroid, Elevated troponin, Anemia Condition: Fair Critical Care Time: Yes Critical Care Time(excluding separately billable procedures): Critical 30-74 mins (50) Referrals: DOCTOR,NO FAMILY [NON-STAFF PHY W/O PRIVILEGES] - Follow up/PCP as directed
[2024-06-20 21:55] LABS: Absolute Neutrophil Ct (ANC) 6.01 x10^3/uL (1.56-6.13); BASOPHIL % 0.3 % (0.1-1.2); Basophil (Absolute #) 0.03 x10^3/uL (0.01-0.08); Eosinophil % 2.3 % (0.7-5.8); Hematocrit 23.6 % (34.1-44.9); Hemoglobin 7.9 g/dL (11.2-15.7); IMMATURE GRAN # 0.06 x10^3u/L (0.001-0.031); IMMATURE GRAN % 0.7 % (0.001-0.429); Lymphocyte (Absolute #) 1.66 x10^3/uL (1.18-3.74); Lymphocytes % 18.9 % (19.3-51.7); Mean Cell Volume 94.8 fL (79.4-94.8); Mean Corpuscular Hemoglobin 31.7 pg (25.6-32.2); Mean Corpuscular Hgb Concent. 33.5 g/dL (32.2-35.5); Mean Platelet Volume 10.9 fL (9.4-12.3); Monocytes % 9.1 % (4.7-12.5); Neutrophil % 68.7 % (34.0-71.1); Platelet Count 328 x10^3/uL (182-369); Red Blood Count 2.49 x10^6/uL (3.93-5.22); Red Cell Distribution Width 16.3 % (11.7-14.4); White Blood Count 8.8 x10^3/uL (3.98-10.04)
[2024-06-20] MEDS ORDERED: Sodium Chloride 0.9% 1000 ML 1,000 ML ONE (22:00)
[2024-06-20] MEDS: Sodium Chloride 0.9% 1000 ML 1,000 ML IV STA (22:00)
[2024-06-20 22:02] LABS: Appearance Clear (Clear); Bacteria None Seen /HPF (None Seen); Bilirubin Negative (Negative); Blood Negative (Negative); Epithelial Cells None Seen /HPF (None Seen); Glucose, Urine Negative (Negative); Ketones Negative (Negative); Leukocyte Esterase Negative (Negative); Nitrite Negative (Negative); Ph 7.5 (4.6-8.0); Protein,Urine Dip 30 (Negative); RBC 0-2 /HPF (0-5); Specific Gravity 1.015 (1.005-1.030); Urobilinogen 0.2 mg/dL (0.2); WBC 0-2 /HPF (0-5)
[2024-06-20 22:07] LABS: ALBUMIN 4.4 g/dL (3.5-5.0); ANION GAP 12.5 MEQ/L (5-15); BILIRUBIN,TOTAL 0.7 mg/dL (0.2-1.3); Calcium 9.5 mg/dL (8.4-10.2); Creatinine 1 1.78 mg/dL (0.52-1.04); EST GLOMERULAR FILTRATION RATE 31.9 ML/MIN; MAGNESIUM 2.7 mg/dL (1.6-2.3); Potassium 4.2 mmol/L (3.5-5.1); Total Protein 6.9 g/dL (6.3-8.2)
[2024-06-20 22:44] LABS: TROPONIN 0.099 ng/mL (0.000-0.033)
[2024-06-21 00:06] LABS: TSH, 3RD Generation 246.27 mIU/L (0.470-4.680)
[2024-06-21 01:57] LABS: Amphetamine,Urine POSITIVE (NEGATIVE); Barbiturate,Urine POSITIVE (NEGATIVE); Benzodiazepine,Urine NEGATIVE (NEGATIVE); Cocaine,Urine NEGATIVE (NEGATIVE); Methadone,Urine NEGATIVE (NEGATIVE); Opiate,Urine POSITIVE (NEGATIVE); PCP,Urine NEGATIVE (NEGATIVE); THC,Urine POSITIVE (NEGATIVE)
[2024-06-21] MEDS ORDERED: Sodium Chloride 0.9% 1000 ML 0 ML ONE (04:06)
[2024-06-21] MEDS: Sodium Chloride 0.9% 1000 ML 1,000 ML IV SCH ×2 (04:08→11:33)
--- NOTE | 2024-06-21 04:42 | PCM.HP ---
History of Present Illness - Chief Complaint Chief Complaint: confusion, low temp Date: 06/21/24 History of Present Illness: 64-year-old woman with CAD with recent NSTEMI status post stent placement, hypertension, asthma, hypothyroidism, polysubstance abuse, anxiety and depression, brought in initially with confusion and hypothermia. Of note, patient was brought in by EMS last week after being found wandering outside, poorly responsive, hypothermic. She was found to have KERLINE, anemia, and NSTEMI, and was sent to [facility]. She eventually had 2 stents placed in her LAD on 06/14, and was discharged to home on 06/19. Patient states that she has not yet filled her prescriptions from them. Per patient, she went home, and fell in her house. She states her neighbor got worried about her and called EMS. However, per ED report, EMS found patient again outside, on the ground, and the cold. Patient later stated that she had crawled out of the driveway. When patient first arrived in the ED, her rectal temperature was 93.9 and she was severely confused, although able to answer some questions. Currently, she has been rewarmed, and is alert and talkative on the floor. She is complaining only of some pain at her right groin catheter access site from [facility]. However, she denies any numbness or tingling in the right leg, and has full mobility and sensation distally. Denies any chest pain or dyspnea, or any other pain. She notes that she has been off balance for some time, and is supposed to walk with a cane, but she was not using one today. - Review of Systems All Other Systems: Reviewed and Negative Medications & Allergies Home Medications: Home Medication List Omeprazole Magnesium [Prilosec Otc] 20 mg PO DAILY 12/31/13 [History Confirmed 05/09/18] Albuterol Sulfate [Proair Hfa] 2 puff IH Q4HPRN PRN 07/15/16 [History Confirmed 05/09/18] Cyclobenzaprine HCl 10 mg [Cyclobenzaprine 10 MG] 10 mg PO TID PRN PRN 07/15/16 [History Confirmed 05/09/18] Potassium Chloride Tab* [Klor Con 10 MEQ] 10 meq PO DAILY 07/15/16 [History Confirmed 05/09/18] lisinopriL [Zestril 40 mg] 40 mg PO DAILY 07/15/16 [History Confirmed 05/09/18] Levothyroxine Sodium 100 Mcg [Synthroid 100 Mcg] 125 mcg PO DAILY 04/21/18 [History Confirmed 05/09/18] ALPRAZolam 1 MG [Xanax 1 mg] 1 mg PO BID PRN 05/09/18 [History Confirmed 05/09/18] Alendronate Sodium 70 mg [Fosamax 70 MG] 70 mg PO UD 05/09/18 [History Confirmed 05/09/18] Escitalopram Oxalate [Lexapro] 20 mg PO DAILY 05/09/18 [History Confirmed 05/09/18] Furosemide 20 mg [Lasix 20 mg] 20 mg PO DAILY 05/09/18 [History Confirmed 05/09/18] Montelukast Sodium 10 mg [Singulair 10 MG] 10 mg PO DAILY 05/09/18 [History Confirmed 05/09/18] Simvastatin 20Mg [Zocor 20Mg] 20 mg PO DAILY 05/09/18 [History Confirmed 05/09/18] Allergies/Adverse Reactions: Allergies Allergy/AdvReac Type Severity Reaction Status Date / Time amoxicillin [Amoxicillin] Allergy Severe Difficulty Verified 06/21/24 00:09 Breathing iodine Allergy Rash Verified 06/21/24 00:09 Penicillins Allergy Verified 06/21/24 00:09 Sulfa (Sulfonamide Allergy Verified 06/21/24 00:09 Antibiotics) - Past Medical History Past Medical History: Yes Neurological History: Seizures, Stroke ENT History: No Pertinent History Cardiac History: Coronary Artery Disease (Status post 2 stents placed in LAD at [facility] on 06/14/2023), High Cholesterol, Hypertension Respiratory History: Asthma, COPD Endocrine Medical History: Hyperthyroidism Musculoskelatal History: Fractures GI Medical History: No Pertinent History History: No Pertinent History Pyscho-Social History: Depression Reproductive Disorders: Cervical Cancer Comment: Pt notes hx of "broken shoulder" that showed up on an XRAY. - Past Surgical History Past Surgical History: Yes Neuro Surgical History: No Pertinent History Cardiac History: Cardiac Stent Respiratory Surgery: No Pertinent History GI Surgical History: No Pertinent History Genitourinary Surgical Hx: No Pertinent History Musculskeletal Surgical Hx: No Pertinent History Female Surgical History: Section Other Surgical History: CERVICAL CANCER REMOVED X 3, X 1, X 1. cardiac stents x 2 June of 2024 Significant Family History: no pertinent family hx - Social History Smoking Status: Former smoker How long have you smoked: 50 years Exposure to second hand smoke: Yes Alcohol: None Drug Use: marijuana - Social Determinants of Health Will the patient participate in the screening: Yes Do you worry about a steady place to live?: No Do you have any problems with any of the following?: No known problems In the past 12 months,have you had to go without utilities?: Yes Have you or anyone in your house had to go without enough: Yes Transportation Issues: Yes Has anyone in your support network made you feel unsafe?: Yes Does the patient want assistance with any of the above?: Yes Comment: Pt needs assistance with above and stable housing/food - Physical Exam Vital Signs: Vital Signs - 24 hr Temp Pulse Resp BP BP Pulse Ox 06/21/24 03:12 97.5 F 72 18 128/75 97 06/21/24 02:29 97 06/21/24 02:00 72 18 98/61 100 06/21/24 01:30 80 92/54 100 06/21/24 01:00 68 111/65 100 06/21/24 00:31 70 88/58 100 06/21/24 00:00 97 F 72 16 109/77 99 06/20/24 23:30 74 16 112/66 97 06/20/24 23:00 75 23 124/67 95 06/20/24 22:30 135/91 93 L 06/20/24 22:00 73 16 123/77 97 06/20/24 21:30 72 18 133/87 97 06/20/24 21:14 93.9 F 74 18 146/96 97 Physical Exam GEN: Mildly disheveled, sitting up in bed in no acute distress. HENT: Normocephalic, atraumatic. Moist mucous membranes. EYES: Normal inspection, anicteric sclera, extraocular movements intact. NECK: Supple, full range of motion CV: Regular rate and rhythm, no murmurs, no gallops. No JVD or edema. Good cap refill in both legs. PULM: Clear to auscultation bilaterally, no work of breathing. On room air. ABD: Nondistended, nontender. MSK: No joint effusions, full range of motion SKIN: Ecchymosis and some induration over the right groin, as well as ecchymoses over the mid pelvis and left lower abdomen. But no bruit or evidence of pseudoaneurysm over the right groin. NEURO: Face symmetric, no focal motor or sensory deficits. Full motor and se nsory over the right leg. PSYCH: Alert, oriented x 3 Results - Labs Lab/Micro Results: Lab Results-Last 24 Hours 06/20/24 06/20/24 06/20/24 Range/Units 21:48 21:52 21:52 WBC 8.8 (3.98-10.04) x10^3/uL RBC 2.49 L (3.93-5.22) x10^6/uL Hgb 7.9 L (11.2-15.7) g/dL Hct 23.6 L (34.1-44.9) % MCV 94.8 (79.4-94.8) fL MCH 31.7 (25.6-32.2) pg MCHC 33.5 (32.2-35.5) g/dL RDW 16.3 H (11.7-14.4) % Plt Count 328 (182-369) x10^3/uL MPV 10.9 (9.4-12.3) fL Gran % 68.7 (34.0-71.1) % Immature Gran % (Auto) 0.7 H (0.001-0.429) % Nucleat RBC Rel Count 0.0 (0.00-0.2) % Eos # (Auto) 0.20 (0.04-0.36) x10^3/uL Immature Gran # (Auto) 0.06 H (0.001-0.031) x10^3u/L Absolute Lymphs (auto) 1.66 (1.18-3.74) x10^3/uL Absolute Monos (auto) 0.80 (0.24-0.86) x10^3/uL Absolute Nucleated RBC 0.00 (0.00-0.012) x10^3u/L Lymphocytes % 18.9 L (19.3-51.7) % Monocytes % 9.1 (4.7-12.5) % Eosinophils % 2.3 (0.7-5.8) % Basophils % 0.3 (0.1-1.2) % Absolute Granulocytes 6.01 (1.56-6.13) x10^3/uL Basophils # 0.03 (0.01-0.08) x10^3/uL Sodium 132 L (135-145) mmol/L Potassium 4.2 (3.5-5.1) mmol/L Chloride 96 L (98-107) mmol/L Carbon Dioxide 28 (22-30) mmol/L Anion Gap 12.5 (5-15) MEQ/L BUN 24 H (7-17) mg/dL Creatinine 1.78 H (0.52-1.04) mg/dL Estimated GFR 31.9 ML/MIN Glucose 94 (74-106) mg/dL Lactic Acid (0.4-2.0) Calcium 9.5 (8.4-10.2) mg/dL Magnesium 2.7 H (1.6-2.3) mg/dL Total Bilirubin 0.70 (0.2-1.3) mg/dL AST 82 H (14-36) U/L ALT 48 H (0-35) U/L Alkaline Phosphatase 129 H (38-126) U/L Creatine Kinase (30-135) U/L Troponin I (0.000-0.033) ng/mL NT-Pro-B Natriuret Pep (<300) pg/mL Serum Total Protein 6.9 (6.3-8.2) g/dL Albumin 4.4 (3.5-5.0) g/dL Free T4 (0.78-2.19) ng/dL TSH 3rd Generation (0.470-4.680) mIU/L Urine Color Yellow (Yellow) Urine Appearance Clear (Clear) Urine pH 7.5 (4.6-8.0) Ur Specific [place] 1.015 (1.005-1.030) Urine Protein 30 (Negative) Urine Glucose (UA) Negative (Negative) mg/dL Urine Ketones Negative (Negative) Urine Blood Negative (Negative) Urine Nitrite Negative (Negative) Urine Bilirubin Negative (Negative) Urine Urobilinogen 0.2 (0.2) mg/dL Ur Leukocyte Esterase Negative (Negative) U Hyaline Cast (Auto) 3-5 A (0-2) /LPF Urine Microscopic RBC 0-2 (0-5) /HPF Urine Microscopic WBC 0-2 (0-5) /HPF Ur Epithelial Cells None Seen (None Seen) /HPF Urine Bacteria None Seen (None Seen) /HPF Urine Culture Reflexed NO (NO) Urine Opiates Level (NEGATIVE) Ur Methadone (NEGATIVE) Urine Barbiturates (NEGATIVE) Ur Phencyclidine (PCP) (NEGATIVE) Urine Amphetamine (NEGATIVE) U Benzodiazepine Level (NEGATIVE) Urine Cocaine (NEGATIVE) Urine Marijuana (THC) (NEGATIVE) 06/20/24 06/20/24 06/20/24 Range/Units 21:52 21:55 21:55 WBC (3.98-10.04) x10^3/uL RBC (3.93-5.22) x10^6/uL Hgb (11.2-15.7) g/dL Hct (34.1-44.9) % MCV (79.4-94.8) fL MCH (25.6-32.2) pg MCHC (32.2-35.5) g/dL RDW (11.7-14.4) % Plt Count (182-369) x10^3/uL MPV (9.4-12.3) fL Gran % (34.0-71.1) % Immature Gran % (Auto) (0.001-0.429) % Nucleat RBC Rel Count (0.00-0.2) % Eos # (Auto) (0.04-0.36) x10^3/uL Immature Gran # (Auto) (0.001-0.031) x10^3u/L Absolute Lymphs (auto) (1.18-3.74) x10^3/uL Absolute Monos (auto) (0.24-0.86) x10^3/uL Absolute Nucleated RBC (0.00-0.012) x10^3u/L Lymphocytes % (19.3-51.7) % Monocytes % (4.7-12.5) % Eosinophils % (0.7-5.8) % Basophils % (0.1-1.2) % Absolute Granulocytes (1.56-6.13) x10^3/uL Basophils # (0.01-0.08) x10^3/uL Sodium (135-145) mmol/L Potassium (3.5-5.1) mmol/L Chloride (98-107) mmol/L Carbon Dioxide (22-30) mmol/L Anion Gap (5-15) MEQ/L BUN (7-17) mg/dL Creatinine (0.52-1.04) mg/dL Estimated GFR ML/MIN Glucose (74-106) mg/dL Lactic Acid (0.4-2.0) Calcium (8.4-10.2) mg/dL Magnesium (1.6-2.3) mg/dL Total Bilirubin (0.2-1.3) mg/dL AST (14-36) U/L ALT (0-35) U/L Alkaline Phosphatase (38-126) U/L Creatine Kinase 629 H (30-135) U/L Troponin I 0.099 H* (0.000-0.033) ng/mL NT-Pro-B Natriuret Pep 3650 (<300) pg/mL Serum Total Protein (6.3-8.2) g/dL Albumin (3.5-5.0) g/dL Free T4 0.48 L (0.78-2.19) ng/dL TSH 3rd Generation 246.270 H (0.470-4.680) mIU/L Urine Color (Yellow) Urine Appearance (Clear) Urine pH (4.6-8.0) Ur Specific [place] (1.005-1.030) Urine Protein (Negative) Urine Glucose (UA) (Negative) mg/dL Urine Ketones (Negative) Urine Blood (Negative) Urine Nitrite (Negative) Urine Bilirubin (Negative) Urine Urobilinogen (0.2) mg/dL Ur Leukocyte Esterase (Negative) U Hyaline Cast (Auto) (0-2) /LPF Urine Microscopic RBC (0-5) /HPF Urine Microscopic WBC (0-5) /HPF Ur Epithelial Cells (None Seen) /HPF Urine Bacteria (None Seen) /HPF Urine Culture Reflexed (NO) Urine Opiates Level (NEGATIVE) Ur Methadone (NEGATIVE) Urine Barbiturates (NEGATIVE) Ur Phencyclidine (PCP) (NEGATIVE) Urine Amphetamine (NEGATIVE) U Benzodiazepine Level (NEGATIVE) Urine Cocaine (NEGATIVE) Urine Marijuana (THC) (NEGATIVE) 06/20/24 06/21/24 06/21/24 Range/Units 22:10 00:00 00:00 WBC (3.98-10.04) x10^3/uL RBC (3.93-5.22) x10^6/uL Hgb (11.2-15.7) g/dL Hct (34.1-44.9) % MCV (79.4-94.8) fL MCH (25.6-32.2) pg MCHC (32.2-35.5) g/dL RDW (11.7-14.4) % Plt Count (182-369) x10^3/uL MPV (9.4-12.3) fL Gran % (34.0-71.1) % Immature Gran % (Auto) (0.001-0.429) % Nucleat RBC Rel Count (0.00-0.2) % Eos # (Auto) (0.04-0.36) x10^3/uL Immature Gran # (Auto) (0.001-0.031) x10^3u/L Absolute Lymphs (auto) (1.18-3.74) x10^3/uL Absolute Monos (auto) (0.24-0.86) x10^3/uL Absolute Nucleated RBC (0.00-0.012) x10^3u/L Lymphocytes % (19.3-51.7) % Monocytes % (4.7-12.5) % Eosinophils % (0.7-5.8) % Basophils % (0.1-1.2) % Absolute Granulocytes (1.56-6.13) x10^3/uL Basophils # (0.01-0.08) x10^3/uL Sodium (135-145) mmol/L Potassium (3.5-5.1) mmol/L Chloride (98-107) mmol/L Carbon Dioxide (22-30) mmol/L Anion Gap (5-15) MEQ/L BUN (7-17) mg/dL Creatinine (0.52-1.04) mg/dL Estimated GFR ML/MIN Glucose (74-106) mg/dL Lactic Acid 0.9 (0.4-2.0) Calcium (8.4-10.2) mg/dL Magnesium (1.6-2.3) mg/dL Total Bilirubin (0.2-1.3) mg/dL AST (14-36) U/L ALT (0-35) U/L Alkaline Phosphatase (38-126) U/L Creatine Kinase (30-135) U/L Troponin I 0.086 H* (0.000-0.033) ng/mL NT-Pro-B Natriuret Pep (<300) pg/mL Serum Total Protein (6.3-8.2) g/dL Albumin (3.5-5.0) g/dL Free T4 (0.78-2.19) ng/dL TSH 3rd Generation (0.470-4.680) mIU/L Urine Color (Yellow) Urine Appearance (Clear) Urine pH (4.6-8.0) Ur Specific [place] (1.005-1.030) Urine Protein (Negative) Urine Glucose (UA) (Negative) mg/dL Urine Ketones (Negative) Urine Blood (Negative) Urine Nitrite (Negative) Urine Bilirubin (Negative) Urine Urobilinogen (0.2) mg/dL Ur Leukocyte Esterase (Negative) U Hyaline Cast (Auto) (0-2) /LPF Urine Microscopic RBC (0-5) /HPF Urine Microscopic WBC (0-5) /HPF Ur Epithelial Cells (None Seen) /HPF Urine Bacteria (None Seen) /HPF Urine Culture Reflexed (NO) Urine Opiates Level POSITIVE A (NEGATIVE) Ur Methadone NEGATIVE (NEGATIVE) Urine Barbiturates POSITIVE A (NEGATIVE) Ur Phencyclidine (PCP) NEGATIVE (NEGATIVE) Urine Amphetamine POSITIVE A (NEGATIVE) U Benzodiazepine Level NEGATIVE (NEGATIVE) Urine Cocaine NEGATIVE (NEGATIVE) Urine Marijuana (THC) POSITIVE A (NEGATIVE) Accuchecks Date 06/20/24 Time 21:49 - Radiology Impressions Radiology Exams & Impressions: Radiology Procedures Category Date Time Status HEAD WITHOUT CONTRAST [CT] Stat Exams 06/20/24 21:03 Taken No radiology report available for head CT, but per ED physician, no acute findings. Assessment/Plan (1) Hypothermia Current Visit: Yes Status: Acute Assessment & Plan: 64-year-old woman with history of polysubstance abuse, hypertension, hypothyroidism, anxiety and depression, asthma, and recent NSTEMI with stent placement, brought in again after being found outside in exposure, with hypothermia. Found to have multiple other comorbidities, all of which seem to be stable to improving from her discharge from [facility] 2 days earlier, but also with multiple drugs of abuse noted on urine tox screen. ## Hypothermia secondary to exposure. Similar presentation to how she came in 8 days ago. At that time, she had been reported to be kicked out of her house. She states that she was home prior to being brought in today, but this is inconsistent with the report from EMS. I suspect patient is on situation is still unstable, and she remains at high risk of recurrent exposure. Her quadrant pressure has improved well with bear hugger alone, and she is currently normothermic. Her prior encephalopathy has resolved with her normal temperature. Consult social work for assistance with safe discharge, as well as getting her medications. ## CAD with recent NSTEMI and stent placement 7 days ago patient is unaware of what her medications are. We have obtained some paperwork from [facility], but have not yet obtained her discharge medication list. However, patient assuredly would need to be on dual antiplatelet therapy after stent placement last week. Note, although her troponin is stable at 0.1 today, that is a decrease from her levels while at [facility], most recently 0.24. Start aspirin 81 mg and Plavix 75 mg daily Patient would also need statin and beta-massiel therapy, but will wait to we obtain discharge medication list from [facility], and then perform proper admission medication reconciliation If able, patient would also benefit from cardiac rehab ## Recurrent falls, unsteady gait patient appears to be noncompliant with her cane, although might be some issues with confabulation with reports of her fall. Intoxication is also a possible cause of the fall. Had physical therapy evaluate patient's gait and mobility, need for and use of assistive devices ## Severe hypothyroidism I suspect patient has been noncompliant with her levothyroxine. Of note, she does not appear to have any overt severe symptoms of hypothyroidism; her initial lethargy on arrival resolved with correction of her hypothermia. Last known TSH at [facility] last week was 260, improved slightly to 246 today. However, TSH corrects slowly with correction of hypothermia, and normally levels are not repeated for 8 to 12 weeks. Once home medication list is obtained from [facility], will resume levothyroxine supplementation ## Anemia most recent labs from [facility] shows that hemoglobin was 8 on 06/17, and her level is stable at that today. It had been 6.9 on 06/16, but she received 1 unit PRBCs. It appears her counts have been stable since then, without evidence of new bleeding. She had some bruising around her groin near the prior cardiac cath access site, but this appears to be stable, and there is no signs of pseudoaneurysm formation. Follow CBC ## CKD stage III creatinine is 1.8 today, same as presentation last week. Her most recent prior creatinine was from 6 years ago, when it was normal at that time. Follow BMP ## Elevated CPK on patient's initial arrival 1 week ago, there was concern for rhabdomyolysis, although CPK levels were only 4984. Levels today are mildly el evated, but decreasing from 1 week ago, down to 629. Will not trend CPK levels further, as they appear to be improving ## Polysubstance abuse urine drug screen positive for opiates, which might be present from her stay at [facility], but also positive for amphetamines, THC, and barbiturates, which she would not have received in the hospital. Patient also has history of tobacco dependence. Will need further assistance with cessation counseling, perhaps can be combined with social work help as above ## Hyponatremia mildly decreased from baseline, from 135 down to 132. Given IV fluids in the ED, and now taking in p.o. Repeat BMP in the morning Allow self-correction of fluids with oral intake at this point ## Reported history of hypertension, asthma, depression, and anxiety patient is unaware of her current medication list. Obtain discharge medication list from [facility], and then will perform additional admission medication reconciliation. CODE STATUS: Full code Prophylaxis: Low risk, encourage ambulation Diet: Regular Dispo: Place in observation, discharge disposition will need to be determined with the assistance of social work. Insert Entirety of encounter took place via live audio/video telemedicine device, with remote physician and patient in hospital, with the assistance of bedside nurse. Code(s): T68.XXXA - HYPOTHERMIA, INITIAL ENCOUNTER Telemedicine Encounter - Telemedicine Encounter Telemedicine Encounter: "The entirety of this encounter was performed via Telemedicine" This visit was performed using real-time audio and video connection between my location and thepatients locationwith the assistance of a surrogateat the patients location. Written or verbal consent was obtained from the patient/guardian to perform this visit usingsynchrInStore Audio Networktelemedicine technology. Any patient questions regarding the telemedicine interaction were answered.
[2024-06-21 05:25] LABS: ALBUMIN 4.2 g/dL (3.5-5.0); ANION GAP 11.3 MEQ/L (5-15); BILIRUBIN,TOTAL 0.8 mg/dL (0.2-1.3); Calcium 9.1 mg/dL (8.4-10.2); Creatinine 1 1.56 mg/dL (0.52-1.04); EST GLOMERULAR FILTRATION RATE 37.4 ML/MIN; Potassium 3.9 mmol/L (3.5-5.1); Total Protein 6.8 g/dL (6.3-8.2)
[2024-06-21] MEDS: SYNTHROID 100 MCG PO SCH (06:33)
[2024-06-21 07:09] LABS: Absolute Neutrophil Ct (ANC) 5.18 x10^3/uL (1.56-6.13); BASOPHIL % 0.7 % (0.1-1.2); Basophil (Absolute #) 0.06 x10^3/uL (0.01-0.08); Eosinophil % 3.5 % (0.7-5.8); Eosinophil (Absolute #) 0.29 x10^3/uL (0.04-0.36); Hematocrit 22.9 % (34.1-44.9); Hemoglobin 7.5 g/dL (11.2-15.7); IMMATURE GRAN # 0.05 x10^3u/L (0.001-0.031); IMMATURE GRAN % 0.6 % (0.001-0.429); Lymphocyte (Absolute #) 1.85 x10^3/uL (1.18-3.74); Lymphocytes % 22.6 % (19.3-51.7); Mean Cell Volume 93.9 fL (79.4-94.8); Mean Corpuscular Hemoglobin 30.7 pg (25.6-32.2); Mean Corpuscular Hgb Concent. 32.8 g/dL (32.2-35.5); Mean Platelet Volume 10.7 fL (9.4-12.3); Monocyte (Absolute #) 0.75 x10^3/uL (0.24-0.86); Monocytes % 9.2 % (4.7-12.5); Neutrophil % 63.4 % (34.0-71.1); Platelet Count 331 x10^3/uL (182-369); Red Blood Count 2.44 x10^6/uL (3.93-5.22); Red Cell Distribution Width 16.1 % (11.7-14.4); White Blood Count 8.2 x10^3/uL (3.98-10.04)
--- NOTE | 2024-06-21 08:37 | XRAY ---
Indication: Confusion. Multiple contiguous axial images obtained through the head without contrast. Comparison: April 21, 2018 New age-appropriate global atrophy, moderate periventricular degenerative micro-ischemia, small bilateral occipital lobe infarcts, and small right external capsule infarct. No acute intracranial hemorrhage, abnormal extra-axial fluid collection, or mass effect. Fourth ventricle is midline without hydrocephalus pain bony calvarium intact. Visualized paranasal sinuses and mastoid air cells are clear. Impression: Nonacute senile brain with multifocal remote infarcts as detailed.
[2024-06-21] MEDS: PLAVIX Tablet PO SCH (09:10)
[2024-06-21] MEDS: MAG-OX 400 PO SCH ×2 (09:10→17:16)
[2024-06-21] MEDS: Zestril 10 MG PO SCH (09:10)
[2024-06-21] MEDS: ECOTRIN 81 MG PO SCH (09:10)
[2024-06-21] MEDS: TYLENOL 325 MG PO PRN (09:13)
[2024-06-21] MEDS ORDERED: MAG-OX 400 PO SCH (17:00)
[2024-06-21] MEDS: Zofran 4 MG/2 ML VIAL IV PRN (20:38)
[2024-06-21] MEDS: ZOCOR 20MG PO SCH (22:51)
--- NOTE | 2024-06-22 05:22 | PCM.NOTE ---
Date and Time: 06/22/24 0516 Subjective Assessment: 64-year-old woman with CAD with recent NSTEMI status post stent placement, hypertension, asthma, hypothyroidism, polysubstance abuse, anxiety and depression who presented to ED 06/20/24 initially with confusion and hypothermia. Of note, patient was brought in by EMS last week after being found wandering out side, poorly responsive, hypothermic. She was found to have KERLINE, anemia, and NSTEMI, and was sent to [facility]. She eventually had 2 stents placed in her LAD on 06/14, and was discharged to home on 06/19. Patient states that she has not yet filled her prescriptions from them. Per patient, she went home, and fell in her house. She states her neighbor got worried about her and called EMS. However, per ED report, EMS found patient again outside, on the ground, and the cold. Patient later stated that she had crawled out of the driveway. When patient first arrived in the ED, her rectal temperature was 93.9 and she was severely confused, although able to answer some questions. She has been rewarmed, and is alert and talkative on the floor. She is complaining only of some pain at her right groin catheter access site from [facility]. However, she denies any numbness or tingling in the right leg, and has full mobility and sensation distally. Denies any chest pain or dyspnea, or any other pain. She notes that she has been off balance for some time, and is supposed to walk with a cane, but she was not using one today.PT has evaluated patient with recommendations for a short term rehab stay d/t impaired safety awareness, multiple hospitalizations, high fall risk and impaired mobility requiring increased level of assistance. She would require 24 hour care at home and this is not available. She is psychologically stable and would need less than a 30- day rehab stay. Pending placement. 06/22/24: Met with patient bedside. She is A&O X3. No overnight events noted. Endorses some tenderness to groin from recent procedures. PT has evaluated patient with recommendations for either 24 hour home care or short term rehab due to impaired safety awareness, multiple hospitalizations, high fall risk and impaired mobility requiring increased level of assistance. Patient is agreeable to short -term stay. She will require less than 30 days and is psychologically stable for placement. Creat is elevated today- plan to increase IVF and hold lisinopril. Case management is working on placement. Denies fever,cough, sob, cp, abdominal pain, RAMOS, dizziness, N/V/D. - Review of Systems Constitutional: Weakness Eyes: No Symptoms Ears, Nose, & Throat: No Symptoms Respiratory: No Symptoms Cardiac: No Symptoms Abdominal/Gastrointestinal: No Symptoms Genitourinary Symptoms: No Symptoms Musculoskeletal: No Symptoms Skin: Other (multiple open areas and abrasions to BLE and BUE) Neurological: No Symptoms Psychological: No Symptoms Endocrine: No Symptoms Hematologic/Lymphatic: No Symptoms Immunological/Allergic: No Symptoms Objective Exam General Appearance: no apparent distress Neurologic Exam: alert, oriented x 3, cooperative Skin Exam: other (multiple open areas and abrasions to BLE and BUE) Eye Exam: PERRL Ears, Nose, Throat Exam: normal ENT inspection Neck Exam: normal inspection Respiratory Exam: crackles/rales Cardiovascular Exam: regular rate/rhythm, normal heart sounds Gastrointestinal/Abdomen Exam: soft, normal bowel sounds Extremity Exam: normal range of motion, other (see skin) Back Exam: normal inspection Pelvic Exam: deferred Rectal Exam: deferred Objective Data Vital Signs: Vital Signs - 24 hr Temp Pulse Resp BP Pulse Ox 06/22/24 04:00 98.3 F 81 14 169/90 95 06/22/24 00:00 98.7 F 86 16 134/78 97 06/21/24 19:54 97.8 F 81 17 128/66 97 06/21/24 16:00 97.5 F 82 17 139/76 95 06/21/24 12:00 97.6 F 80 15 106/57 97 06/21/24 07:38 97.6 F 82 16 131/76 97 Pain Assessment - Last Documented Pain Intensity 0 Pain Scale Used 0-10 Pain Scale Intake and Output: Intake & Output 06/19/24 06/20/24 06/21/24 06/22/24 11:59 11:59 11:59 11:59 Intake Total 360 1120 Output Total 950 625 Balance -590 495 Weight 53 kg 53 kg Lab Results: Lab Results-Last 24 Hours 06/21/24 06/21/24 06/21/24 Range/Units 05:00 05:00 07:06 WBC 8.2 (3.98-10.04) x10^3/uL RBC 2.44 L (3.93-5.22) x10^6/uL Hgb 7.5 L (11.2-15.7) g/dL Hct 22.9 L (34.1-44.9) % MCV 93.9 (79.4-94.8) fL MCH 30.7 (25.6-32.2) pg MCHC 32.8 (32.2-35.5) g/dL RDW 16.1 H (11.7-14.4) % Plt Count 331 (182-369) x10^3/uL MPV 10.7 (9.4-12.3) fL Gran % 63.4 (34.0-71.1) % Immature Gran % (Auto) 0.6 H (0.001-0.429) % Nucleat RBC Rel Count 0.0 (0.00-0.2) % Eos # (Auto) 0.29 (0.04-0.36) x10^3/uL Immature Gran # (Auto) 0.05 H (0.001-0.031) x10^3u/L Absolute Lymphs (auto) 1.85 (1.18-3.74) x10^3/uL Absolute Monos (auto) 0.75 (0.24-0.86) x10^3/uL Absolute Nucleated RBC 0.00 (0.00-0.012) x10^3u/L Lymphocytes % 22.6 (19.3-51.7) % Monocytes % 9.2 (4.7-12.5) % Eosinophils % 3.5 (0.7-5.8) % Basophils % 0.7 (0.1-1.2) % Absolute Granulocytes 5.18 (1.56-6.13) x10^3/uL Basophils # 0.06 (0.01-0.08) x10^3/uL Sodium 132 L (135-145) mmol/L Potassium 3.9 (3.5-5.1) mmol/L Chloride 100 (98-107) mmol/L Carbon Dioxide 24 (22-30) mmol/L Anion Gap 11.3 (5-15) MEQ/L BUN 22 H (7-17) mg/dL Creatinine 1.56 H (0.52-1.04) mg/dL Estimated GFR 37.4 ML/MIN Glucose 87 (74-106) mg/dL Calcium 9.1 (8.4-10.2) mg/dL Total Bilirubin 0.80 (0.2-1.3) mg/dL AST 75 H (14-36) U/L ALT 43 H (0-35) U/L Alkaline Phosphatase 116 (38-126) U/L Troponin I 0.080 H* (0.000-0.033) ng/mL Serum Total Protein 6.8 (6.3-8.2) g/dL Albumin 4.2 (3.5-5.0) g/dL Radiology Exams: Radiology Procedures Category Date Time Status HEAD WITHOUT CONTRAST [CT] Stat Exams 06/20/24 21:03 Completed Multi-Disciplinary Progress Notes: Multi-Disciplinary Progress Notes 06/21/24 13:45 Case Management Note by Angie Victor DECLINING PATIENT D/T DRUG USE S/W PATIENT REFERRAL FAXED TO [facility] PER REQUEST PATIENT REPORTS IF [facility] WILL NOT TAKE HER SHE IS WILLING TO GO TO ANY FACILITY THAT WILL TAKE HER Initialized on 06/21/24 13:45 - END OF NOTE 06/21/24 13:02 Case Management Note by Angie Victor AND LOC APPROVED- NO LEVEL II REQUIRED COPIES PLACED ON CHART AND FAXED TO [facility] Initialized on 06/21/24 13:02 - END OF NOTE 06/21/24 12:45 Case Management Note by Angie Victor AND KELVIN PENDING REFERRAL FAXED TO [facility] S/W SILVIA- SHE WILL REVIEW. SHE WAS ALSO NOTIFIED OF PATIENT NEEDING INTERNATIONAL LOGISTICS MANAGER HELP AT IN D/T NO UTILITIES ON AT HOME CURRENTLY Initialized on 06/21/24 12:45 - END OF NOTE Assessment/Plan (1) Hypothermia Current Visit: Yes Status: Acute Assessment & Plan: secondary to exposure. Similar presentation to how she came in 8 days ago. At that time, she had been reported to be kicked out of her house. She states that she was home prior to being brought in today, but this is inconsistent with the report from EMS. I suspect patient is on situation is still unstable, and she remains at high risk of recurrent exposure. Her quadrant pressure has improved well with bear hugger alone, and she is currently normothermic. -Encephalopathy has resolved with her normal temperature. Consult social work for assistance with safe discharge, as well as getting her medications - patient has requested rehab stay for strengthening 06/22: -Resolved Code(s): T68.XXXA - HYPOTHERMIA, INITIAL ENCOUNTER (2) CAD (coronary artery disease) Current Visit: Yes Status: Acute Assessment & Plan: -Recent NSTEMI and stent placement 7 days ago patient is unaware of what her medications are. We have obtained some paperwork from regional Started on aspirin 81 mg, Simvastatin, and Plavix 75 mg daily will continue No BB on discharge medication list patient requesting rehab stay on discharge and is pending Code(s): I25.10 - ATHSCL HEART DISEASE OF [place] CORONARY ARTERY W/O ANG PCTRS (3) Recurrent falls Current Visit: Yes Status: Acute Assessment & Plan: -PT eval with recommendations for a short term rehab stay d/t impaired safety awareness, multiple hospitalizations, high fall risk and impaired mobility requiring increased level of assistance. She would require 24 hour care at home and this is not available. She is psychologically stable and would need less than a 30-day rehab stay. 06/22: -continue IPPT - discharge to rehab - pending authorization Code(s): R29.6 - REPEATED FALLS (4) Anemia Current Visit: Yes Status: Acute Assessment & Plan: -Trend cbc - add iron labs -Hgb today at 7.4 Code(s): D64.9 - ANEMIA, UNSPECIFIED (5) CKD (chronic kidney disease) stage 3, GFR 30-59 ml/min Current Visit: Yes Status: Acute Assessment & Plan: Baseline creat at around 0.8-0.9 -creatinine is 1.8 on admission now at 1.93 - will increase IVF to 100ml/hr -Monitor renal/lytes daily -avoid nephrotoxic meds -IVF Code(s): N18.30 - CHRONIC KIDNEY DISEASE, STAGE 3 UNSPECIFIED (6) Elevated CPK Current Visit: Yes Status: Acute Assessment & Plan: on patient's initial arrival 1 week ago, there was concern for rhabdomyolysis, although CPK levels were only 4984. Levels today are mildly elevated, but decreasing from 1 week ago, down to 629. Will not trend CPK levels further, as they appear to be improving (7) Polysubstance (excluding opioids) dependence Current Visit: Yes Status: Acute Assessment & Plan: urine drug screen positive for opiates, which might be present from her stay at [facility], but also positive for amphetamines, THC, and barbiturates, which she would not have received in the hospital. Patient also has history of tobacco dependence. -Patient denies use of amphetamines - states she does use THC Will need further assistance with cessation counseling, perhaps can be combined with social work help as above Code(s): F19.20 - OTHER PSYCHOACTIVE SUBSTANCE DEPENDENCE, UNCOMPLICATED (8) Hyponatremia Current Visit: Yes Status: Acute Assessment & Plan: -Sodium levels reviewed at 140 - resolved Code(s): E87.1 - HYPO-OSMOLALITY AND HYPONATREMIA (9) HTN (hypertension) Current Visit: Yes Status: Acute Assessment & Plan: -BP stable- hold home lisinopril for KERLINE Code(s): I10 - ESSENTIAL (PRIMARY) HYPERTENSION (10) Asthma Current Visit: Yes Status: Acute Assessment & Plan: -Does not appear in exacerbation -RT to follow -On RA -Nebs prn Code(s): J45.909 - UNSPECIFIED ASTHMA, UNCOMPLICATED (11) Depression Current Visit: Yes Status: Acute Assessment & Plan: -Does not appear to be on home meds Code(s): F32.A - DEPRESSION, UNSPECIFIED (12) Hypothyroid Current Visit: Yes Status: Acute Assessment & Plan: Noncompliant with her levothyroxine -No overt severe symptoms of hypothyroidism; her initial lethargy on arrival resolved with correction of her hypothermia. -Last known TSH at [facility] last week was 260, improved slightly to 246 today. However, TSH corrects slowly with correction of hypothermia, and normally levels are not repeated for 8 to 12 weeks. Resume levothyroxine supplementation Code(s): E03.9 - HYPOTHYROIDISM, UNSPECIFIED
[2024-06-22 06:42] LABS: Absolute Neutrophil Ct (ANC) 4.63 x10^3/uL (1.56-6.13); BASOPHIL % 0.7 % (0.1-1.2); Basophil (Absolute #) 0.05 x10^3/uL (0.01-0.08); Eosinophil % 3.1 % (0.7-5.8); Eosinophil (Absolute #) 0.22 x10^3/uL (0.04-0.36); Hematocrit 23.6 % (34.1-44.9); Hemoglobin 7.4 g/dL (11.2-15.7); IMMATURE GRAN # 0.03 x10^3u/L (0.001-0.031); IMMATURE GRAN % 0.4 % (0.001-0.429); Lymphocyte (Absolute #) 1.49 x10^3/uL (1.18-3.74); Lymphocytes % 20.9 % (19.3-51.7); Mean Cell Volume 97.1 fL (79.4-94.8); Mean Corpuscular Hemoglobin 30.5 pg (25.6-32.2); Mean Corpuscular Hgb Concent. 31.4 g/dL (32.2-35.5); Mean Platelet Volume 10.5 fL (9.4-12.3); Monocytes % 9.8 % (4.7-12.5); Neutrophil % 65.1 % (34.0-71.1); Platelet Count 375 x10^3/uL (182-369); Red Blood Count 2.43 x10^6/uL (3.93-5.22); Red Cell Distribution Width 16.6 % (11.7-14.4); White Blood Count 7.1 x10^3/uL (3.98-10.04)
[2024-06-22 07:21] LABS: ALBUMIN 3.6 g/dL (3.5-5.0); BILIRUBIN,TOTAL 0.6 mg/dL (0.2-1.3); Calcium 8.8 mg/dL (8.4-10.2); Creatinine 1 1.93 mg/dL (0.52-1.04); EST GLOMERULAR FILTRATION RATE 28.9 ML/MIN; Potassium 3.9 mmol/L (3.5-5.1); Total Protein 6.1 g/dL (6.3-8.2)
[2024-06-22] MEDS: Sodium Chloride 0.9% 1000 ML 1,000 ML IV SCH (07:22)
[2024-06-22 08:47] LABS: Iron 73 ug/dL (37-170); Iron Saturation 25 % (20-39); TIBC 287 ug/dL (265-462)
[2024-06-22 09:44] LABS: Folate (Folic Acid) 4.46 ng/mL (2.76 - >20)
[2024-06-22] MEDS ORDERED: PLAVIX Tablet PO SCH (10:00)
[2024-06-22] MEDS ORDERED: ZOCOR 20MG PO SCH (10:00)
[2024-06-22] MEDS ORDERED: Zestril 10 MG PO SCH (10:00)
[2024-06-22] MEDS ORDERED: LIPITOR 40MG PO SCH (10:00)
[2024-06-22] MEDS ORDERED: ECOTRIN 81 MG PO SCH (10:00)
[2024-06-22] MEDS ORDERED: SYNTHROID 100 MCG PO SCH (10:00)
--- NOTE | 2024-06-23 05:18 | PCM.NOTE ---
Date and Time: 06/23/24 0517 Subjective Assessment: 64-year-old woman with CAD with recent NSTEMI status post stent placement, hypertension, asthma, hypothyroidism, polysubstance abuse, anxiety and depression who presented to ED 06/20/24 initially with confusion and hypothermia. Of note, patient was brought in by EMS last week after being found wandering out side, poorly responsive, hypothermic. She was found to have KERLINE, anemia, and NSTEMI, and was sent to [facility]. She eventually had 2 stents placed in her LAD on 06/14, and was discharged to home on 06/19. Patient states that she has not yet filled her prescriptions from them. Per patient, she went home, and fell in her house. She states her neighbor got worried about her and called EMS. However, per ED report, EMS found patient again outside, on the ground, and the cold. Patient later stated that she had crawled out of the driveway. When patient first arrived in the ED, her rectal temperature was 93.9 and she was severely confused, although able to answer some questions. She has been rewarmed, and is alert and talkative on the floor. She is complaining only of some pain at her right groin catheter access site from [facility]. However, she denies any numbness or tingling in the right leg, and has full mobility and sensation distally. Denies any chest pain or dyspnea, or any other pain. She notes that she has been off balance for some time, and is supposed to walk with a cane, but she was not using one today.PT has evaluated patient with recommendations for a short term rehab stay d/t impaired safety awareness, multiple hospitalizations, high fall risk and impaired mobility requiring increased level of assistance. She would require 24 hour care at home and this is not available. She is psychologically stable and would need less than a 30- day rehab stay. Pending placement. 06/22/24: Met with patient bedside. She is A&O X3. No overnight events noted. Endorses some tenderness to groin from recent procedures. PT has evaluated patient with recommendations for either 24 hour home care or short term rehab due to impaired safety awareness, multiple hospitalizations, high fall risk and impaired mobility requiring increased level of assistance. Patient is agreeable to short -term stay. She will require less than 30 days and is psychologically stable for placement. Creat is elevated today- plan to increase IVF and hold lisinopril. Case management is working on placement. Denies fever,cough, sob, cp, abdominal pain, RAMOS, dizziness, N/V/D. 06/23/24: Met with patient bedside. No overnight events. Mild back pain rating 5/10 on numerical pain scale. KERLINE improving. Plan for SNF on discharge. Approval pending. Patient continues to endorse weakness. - Review of Systems Constitutional: No Symptoms Eyes: No Symptoms Ears, Nose, & Throat: No Symptoms Respiratory: Short Of Breath Cardiac: No Symptoms Abdominal/Gastrointestinal: No Symptoms Genitourinary Symptoms: No Symptoms Musculoskeletal: Back Pain Skin: No Symptoms Neurological: No Symptoms Psychological: No Symptoms Endocrine: No Symptoms Hematologic/Lymphatic: No Symptoms Immunological/Allergic: No Symptoms Objective Exam General Appearance: no apparent distress Neurologic Exam: alert, oriented x 3, cooperative Skin Exam: normal color, ecchymosis, other (multiple open wounds to BLE in various stages of healing) Eye Exam: PERRL Neck Exam: normal inspection Respiratory Exam: normal breath sounds, lungs clear Cardiovascular Exam: regular rate/rhythm, normal heart sounds Gastrointestinal/Abdomen Exam: soft, normal bowel sounds Back Exam: normal inspection Pelvic Exam: deferred Rectal Exam: deferred Objective Data Vital Signs: Vital Signs - 24 hr Temp Pulse Resp BP Pulse Ox 06/23/24 03:53 97.8 F 83 20 160/87 96 06/23/24 00:00 97.8 F 83 17 150/87 95 06/22/24 19:47 97.6 F 84 19 121/73 97 06/22/24 16:00 96.9 F 74 9 L 135/82 99 06/22/24 11:44 97 F 81 18 162/92 98 06/22/24 07:15 98 F 84 17 143/83 98 Pain Assessment - Last Documented Pain Intensity 0 Pain Scale Used 0-10 Pain Scale Intake and Output: Intake & Output 06/20/24 06/21/24 06/22/24 06/23/24 11:59 11:59 11:59 11:59 Intake Total 360 1240 3550 Output Total 950 1025 Balance -596 573 5288 Weight 53 kg 53 kg Lab Results: Lab Results-Last 24 Hours 06/21/24 06/22/24 06/22/24 Range/Units 07:06 06:02 06:02 WBC 8.2 7.1 (3.98-10.04) x10^3/uL RBC 2.44 L 2.43 L (3.93-5.22) x10^6/uL Hgb 7.5 L 7.4 L (11.2-15.7) g/dL Hct 22.9 L 23.6 L (34.1-44.9) % MCV 93.9 97.1 H (79.4-94.8) fL MCH 30.7 30.5 (25.6-32.2) pg MCHC 32.8 31.4 L (32.2-35.5) g/dL RDW 16.1 H 16.6 H (11.7-14.4) % Plt Count 331 375 H (182-369) x10^3/uL MPV 10.7 10.5 (9.4-12.3) fL Gran % 63.4 65.1 (34.0-71.1) % Immature Gran % (Auto) 0.6 H 0.4 (0.001-0.429) % Nucleat RBC Rel Count 0.0 0.0 (0.00-0.2) % Eos # (Auto) 0.29 0.22 (0.04-0.36) x10^3/uL Immature Gran # (Auto) 0.05 H 0.03 (0.001-0.031) x10^3u/L Absolute Lymphs (auto) 1.85 1.49 (1.18-3.74) x10^3/uL Absolute Monos (auto) 0.75 0.70 (0.24-0.86) x10^3/uL Absolute Nucleated RBC 0.00 0.00 (0.00-0.012) x10^3u/L Lymphocytes % 22.6 20.9 (19.3-51.7) % Monocytes % 9.2 9.8 (4.7-12.5) % Eosinophils % 3.5 3.1 (0.7-5.8) % Basophils % 0.7 0.7 (0.1-1.2) % Absolute Granulocytes 5.18 4.63 (1.56-6.13) x10^3/uL Basophils # 0.06 0.05 (0.01-0.08) x10^3/uL Sodium 140 D (135-145) mmol/L Potassium 3.9 (3.5-5.1) mmol/L Chloride 107 (98-107) mmol/L Carbon Dioxide 26 (22-30) mmol/L Anion Gap 11.0 (5-15) MEQ/L BUN 25 H (7-17) mg/dL Creatinine 1.93 H (0.52-1.04) mg/dL Estimated GFR 28.9 ML/MIN Glucose 81 (74-106) mg/dL Calcium 8.8 (8.4-10.2) mg/dL Iron (37-170) ug/dL TIBC (265-462) ug/dL Iron Saturation (20-39) % Ferritin (11.1-264) ng/mL Total Bilirubin 0.60 (0.2-1.3) mg/dL AST 56 H (14-36) U/L ALT 34 (0-35) U/L Alkaline Phosphatase 108 (38-126) U/L Serum Total Protein 6.1 L (6.3-8.2) g/dL Albumin 3.6 (3.5-5.0) g/dL Vitamin B12 (239-931) pg/mL Folic Acid (2.76 - >20) ng/mL 06/22/24 06/22/24 Range/Units 06:02 06:02 WBC (3.98-10.04) x10^3/uL RBC (3.93-5.22) x10^6/uL Hgb (11.2-15.7) g/dL Hct (34.1-44.9) % MCV (79.4-94.8) fL MCH (25.6-32.2) pg MCHC (32.2-35.5) g/dL RDW (11.7-14.4) % Plt Count (182-369) x10^3/uL MPV (9.4-12.3) fL Gran % (34.0-71.1) % Immature Gran % (Auto) (0.001-0.429) % Nucleat RBC Rel Count (0.00-0.2) % Eos # (Auto) (0.04-0.36) x10^3/uL Immature Gran # (Auto) (0.001-0.031) x10^3u/L Absolute Lymphs (auto) (1.18-3.74) x10^3/uL Absolute Monos (auto) (0.24-0.86) x10^3/uL Absolute Nucleated RBC (0.00-0.012) x10^3u/L Lymphocytes % (19.3-51.7) % Monocytes % (4.7-12.5) % Eosinophils % (0.7-5.8) % Basophils % (0.1-1.2) % Absolute Granulocytes (1.56-6.13) x10^3/uL Basophils # (0.01-0.08) x10^3/uL Sodium (135-145) mmol/L Potassium (3.5-5.1) mmol/L Chloride (98-107) mmol/L Carbon Dioxide (22-30) mmol/L Anion Gap (5-15) MEQ/L BUN (7-17) mg/dL Creatinine (0.52-1.04) mg/dL Estimated GFR ML/MIN Glucose (74-106) mg/dL Calcium (8.4-10.2) mg/dL Iron 73 (37-170) ug/dL TIBC 287 (265-462) ug/dL Iron Saturation 25 (20-39) % Ferritin 225 (11.1-264) ng/mL Total Bilirubin (0.2-1.3) mg/dL AST (14-36) U/L ALT (0-35) U/L Alkaline Phosphatase (38-126) U/L Serum Total Protein (6.3-8.2) g/dL Albumin (3.5-5.0) g/dL Vitamin B12 408 (239-931) pg/mL Folic Acid 4.46 (2.76 - >20) ng/mL Assessment/Plan (1) Hypothermia Current Visit: Yes Status: Acute Assessment & Plan: secondary to exposure. Similar presentation to how she came in 8 days ago. At that time, she had been reported to be kicked out of her house. She states that she was home prior to being brought in today, but this is inconsistent with the report from EMS. I suspect patient is on situation is still unstable, and she remains at high risk of recurrent exposure. Her quadrant pressure has improved well with bear hugger alone, and she is currently normothermic. -Encephalopathy has resolved with her normal temperature. Consult social work for assistance with safe discharge, as well as getting her medications - patient has requested rehab stay for strengthening 06/22: -Resolved Code(s): T68.XXXA - HYPOTHERMIA, INITIAL ENCOUNTER (2) CAD (coronary artery disease) Current Visit: Yes Status: Acute Assessment & Plan: -Recent NSTEMI and stent placement 7 days ago patient is unaware of what her medications are. We have obtained some paperwork from [facility] Started on aspirin 81 mg, Simvastatin, and Plavix 75 mg daily will continue No BB on discharge medication list patient requesting rehab stay on discharge and is pending Code(s): I25.10 - ATHSCL HEART DISEASE OF [place] CORONARY ARTERY W/O ANG PCTRS (3) Recurrent falls Current Visit: Yes Status: Acute Assessment & Plan: -PT eval with recommendations for a short term rehab stay d/t impaired safety awareness, multiple hospitalizations, high fall risk and impaired mobility requiring increased level of assistance. She would require 24 hour care at home and this is not available. She is psychologically stable and would need less than a 30-day rehab stay. 06/22: -continue IPPT - discharge to rehab - pending authorization Code(s): R29.6 - REPEATED FALLS (4) Anemia Current Visit: Yes Status: Acute Assessment & Plan: -Trend cbc - add iron labs -Hgb today at 7.6 -iron saturation at 25% Code(s): D64.9 - ANEMIA, UNSPECIFIED (5) CKD (chronic kidney disease) stage 3, GFR 30-59 ml/min Current Visit: Yes Status: Acute Assessment & Plan: Baseline creat at around 0.8-0.9 -creatinine is 1.8 on admission now at 1.93 - will increase IVF to 100ml/hr -Monitor renal/lytes daily -avoid nephrotoxic meds -IVF 06/23: -Creat reviewed at 1.27- improved from 1.93 0 continue IVF Code(s): N18.30 - CHRONIC KIDNEY DISEASE, STAGE 3 UNSPECIFIED (6) Elevated CPK Current Visit: Yes Status: Acute Assessment & Plan: on patient's initial arrival 1 week ago, there was concern for rhabdomyolysis, although CPK levels were only 4984. Levels today are mildly elevated, but decreasing from 1 week ago, down to 629. Will not trend CPK levels further, as they appear to be improving (7) Polysubstance (excluding opioids) dependence Current Visit: Yes Status: Acute Assessment & Plan: urine drug screen positive for opiates, which might be present from her stay at [facility], but also positive for amphetamines, THC, and barbiturates, which she would not have received in the hospital. Patient also has history of tobacco dependence. -Patient denies use of amphetamines - states she does use THC Will need further assistance with cessation counseling, perhaps can be combined with social work help as above Code(s): F19.20 - OTHER PSYCHOACTIVE SUBSTANCE DEPENDENCE, UNCOMPLICATED (8) Hyponatremia Current Visit: Yes Status: Acute Assessment & Plan: -Sodium levels reviewed at 140 - resolved Code(s): E87.1 - HYPO-OSMOLALITY AND HYPONATREMIA (9) HTN (hypertension) Current Visit: Yes Status: Acute Assessment & Plan: -BP stable- hold home lisinopril for KERLINE Code(s): I10 - ESSENTIAL (PRIMARY) HYPERTENSION (10) Asthma Current Visit: Yes Status: Acute Assessment & Plan: -Does not appear in exacerbation -RT to follow -On RA -Nebs prn Code(s): J45.909 - UNSPECIFIED ASTHMA, UNCOMPLICATED (11) Depression Current Visit: Yes Status: Acute Assessment & Plan: -Does not appear to be on home meds Code(s): F32.A - DEPRESSION, UNSPECIFIED (12) Hypothyroid Current Visit: Yes Status: Acute Assessment & Plan: Noncompliant with her levothyroxine -No overt severe symptoms of hypothyroidism; her initial lethargy on arrival resolved with correction of her hypothermia. -Last known TSH at [facility] last week was 260, improved slightly to 246 today. However, TSH corrects slowly with correction of hypothermia, and normally levels are not repeated for 8 to 12 weeks. Resume levothyroxine supplementation Code(s): T68.XXXA - HYPOTHERMIA, INITIAL ENCOUNTER (2) CAD (coronary artery disease) Current Visit: Yes Status: Acute Code(s): I25.10 - ATHSCL HEART DISEASE OF [place] CORONARY ARTERY W/O ANG PCTRS (3) Recurrent falls Current Visit: Yes Status: Acute Code(s): R29.6 - REPEATED FALLS (4) Anemia Current Visit: Yes Status: Acute Code(s): D64.9 - ANEMIA, UNSPECIFIED (5) CKD (chronic kidney disease) stage 3, GFR 30-59 ml/min Current Visit: Yes Status: Acute Code(s): N18.30 - CHRONIC KIDNEY DISEASE, STAGE 3 UNSPECIFIED (6) Elevated CPK Current Visit: Yes Status: Acute (7) Polysubstance (excluding opioids) dependence Current Visit: Yes Status: Acute Code(s): F19.20 - OTHER PSYCHOACTIVE SUBSTANCE DEPENDENCE, UNCOMPLICATED (8) Hyponatremia Current Visit: Yes Status: Acute Code(s): E87.1 - HYPO-OSMOLALITY AND HYPONATREMIA (9) HTN (hypertension) Current Visit: Yes Status: Acute Code(s): I10 - ESSENTIAL (PRIMARY) HYPERTENSION (10) Asthma Current Visit: Yes Status: Acute Code(s): J45.909 - UNSPECIFIED ASTHMA, UNCOMPLICATED (11) Depression Current Visit: Yes Status: Acute Code(s): F32.A - DEPRESSION, UNSPECIFIED (12) Hypothyroid Current Visit: Yes Status: Acute Code(s): E03.9 - HYPOTHYROIDISM, UNSPECIFIED
[2024-06-23 07:35] LABS: Absolute Neutrophil Ct (ANC) 4.27 x10^3/uL (1.56-6.13); BASOPHIL % 0.7 % (0.1-1.2); Basophil (Absolute #) 0.05 x10^3/uL (0.01-0.08); Eosinophil % 3.5 % (0.7-5.8); Eosinophil (Absolute #) 0.25 x10^3/uL (0.04-0.36); Hematocrit 23.8 % (34.1-44.9); Hemoglobin 7.6 g/dL (11.2-15.7); IMMATURE GRAN # 0.04 x10^3u/L (0.001-0.031); IMMATURE GRAN % 0.6 % (0.001-0.429); Lymphocyte (Absolute #) 2.05 x10^3/uL (1.18-3.74); Lymphocytes % 28.3 % (19.3-51.7); Mean Cell Volume 99.2 fL (79.4-94.8); Mean Corpuscular Hemoglobin 31.7 pg (25.6-32.2); Mean Corpuscular Hgb Concent. 31.9 g/dL (32.2-35.5); Monocyte (Absolute #) 0.58 x10^3/uL (0.24-0.86); Neutrophil % 58.9 % (34.0-71.1); Platelet Count 388 x10^3/uL (182-369); Red Cell Distribution Width 16.3 % (11.7-14.4); White Blood Count 7.2 x10^3/uL (3.98-10.04)
[2024-06-23 07:50] LABS: ALBUMIN 3.8 g/dL (3.5-5.0); ANION GAP 14.5 MEQ/L (5-15); BILIRUBIN,TOTAL 0.6 mg/dL (0.2-1.3); Calcium 8.6 mg/dL (8.4-10.2); Creatinine 1 1.27 mg/dL (0.52-1.04); EST GLOMERULAR FILTRATION RATE 47.8 ML/MIN; Total Protein 6.3 g/dL (6.3-8.2)
[2024-06-24] MEDS ORDERED: TRANDATE 100 MG/20 ML MDV FOR DRIP IV PRN (00:55)
[2024-06-24] MEDS: NORCO 5/325 MG PO ONE (01:05)
[2024-06-24 04:34] VITALS: RESP 16
[2024-06-24 05:42] LABS: Absolute Neutrophil Ct (ANC) 3.95 x10^3/uL (1.56-6.13); BASOPHIL % 0.7 % (0.1-1.2); Basophil (Absolute #) 0.05 x10^3/uL (0.01-0.08); Eosinophil % 4.3 % (0.7-5.8); Eosinophil (Absolute #) 0.29 x10^3/uL (0.04-0.36); Hematocrit 23.7 % (34.1-44.9); Hemoglobin 7.6 g/dL (11.2-15.7); IMMATURE GRAN # 0.04 x10^3u/L (0.001-0.031); IMMATURE GRAN % 0.6 % (0.001-0.429); Lymphocyte (Absolute #) 1.96 x10^3/uL (1.18-3.74); Lymphocytes % 28.7 % (19.3-51.7); Mean Cell Volume 98.3 fL (79.4-94.8); Mean Corpuscular Hemoglobin 31.5 pg (25.6-32.2); Mean Corpuscular Hgb Concent. 32.1 g/dL (32.2-35.5); Mean Platelet Volume 9.7 fL (9.4-12.3); Monocyte (Absolute #) 0.53 x10^3/uL (0.24-0.86); Monocytes % 7.8 % (4.7-12.5); Neutrophil % 57.9 % (34.0-71.1); Platelet Count 391 x10^3/uL (182-369); Red Blood Count 2.41 x10^6/uL (3.93-5.22); Red Cell Distribution Width 16.6 % (11.7-14.4); White Blood Count 6.8 x10^3/uL (3.98-10.04)
--- NOTE | 2024-06-24 05:42 | PCM.NOTE ---
Date and Time: 06/24/24 0541 Subjective Assessment: 64-year-old woman with CAD with recent NSTEMI status post stent placement, hypertension, asthma, hypothyroidism, polysubstance abuse, anxiety and depression who presented to ED 06/20/24 initially with confusion and hypothermia. Of note, patient was brought in by EMS last week after being found wandering out side, poorly responsive, hypothermic. She was found to have KERLINE, anemia, and NSTEMI, and was sent to [facility]. She eventually had 2 stents placed in her LAD on 06/14, and was discharged to home on 06/19. Patient states that she has not yet filled her prescriptions from them. Per patient, she went home, and fell in her house. She states her neighbor got worried about her and called EMS. However, per ED report, EMS found patient again outside, on the ground, and the cold. Patient later stated that she had crawled out of the driveway. When patient first arrived in the ED, her rectal temperature was 93.9 and she was severely confused, although able to answer some questions. She has been rewarmed, and is alert and talkative on the floor. She is complaining only of some pain at her right groin catheter access site from [facility]. However, she denies any numbness or tingling in the right leg, and has full mobility and sensation distally. Denies any chest pain or dyspnea, or any other pain. She notes that she has been off balance for some time, and is supposed to walk with a cane, but she was not using one today.PT has evaluated patient with recommendations for a short term rehab stay d/t impaired safety awareness, multiple hospitalizations, high fall risk and impaired mobility requiring increased level of assistance. She would require 24 hour care at home and this is not available. She is psychologically stable and would need less than a 30- day rehab stay. Pending placement. 06/22/24: Met with patient bedside. She is A&O X3. No overnight events noted. Endorses some tenderness to groin from recent procedures. PT has evaluated patient with recommendations for either 24 hour home care or short term rehab due to impaired safety awareness, multiple hospitalizations, high fall risk and impaired mobility requiring increased level of assistance. Patient is agreeable to short -term stay. She will require less than 30 days and is psychologically stable for placement. Creat is elevated today- plan to increase IVF and hold lisinopril. Case management is working on placement. Denies fever,cough, sob, cp, abdominal pain, RAMOS, dizziness, N/V/D. 06/23/24: Met with patient bedside. No overnight events. Mild back pain rating 5/10 on numerical pain scale. KERLINE improving. Plan for SNF on discharge. Approval pending. Patient continues to endorse weakness. Objective Data Vital Signs: Vital Signs - 24 hr Temp Pulse Resp BP Pulse Ox 06/24/24 04:33 96.7 F 79 16 96 06/24/24 03:57 166/100 06/24/24 02:23 67 15 153/92 06/24/24 00:45 74 174/96 06/24/24 00:00 97.3 F 72 18 188/94 98 06/23/24 20:00 97.7 F 82 20 143/93 97 06/23/24 16:00 97.5 F 82 18 145/92 95 06/23/24 12:00 98.1 F 86 20 182/90 95 06/23/24 08:00 97.9 F 86 16 145/89 95 Pain Assessment - Last Documented Pain Intensity 5 Pain Scale Used 0-10 Pain Scale Intake and Output: Intake & Output 06/21/24 06/22/24 06/23/24 06/24/24 11:59 11:59 11:59 11:59 Intake Total 360 1240 4030 480 Output Total 950 1025 1 Balance -854 082 5130 479 Weight 53 kg 53 kg Lab Results: Lab Results-Last 24 Hours 06/23/24 06/23/24 Range/Units 07:39 07:39 WBC 7.2 (3.98-10.04) x10^3/uL RBC 2.40 L (3.93-5.22) x10^6/uL Hgb 7.6 L (11.2-15.7) g/dL Hct 23.8 L (34.1-44.9) % MCV 99.2 H (79.4-94.8) fL MCH 31.7 (25.6-32.2) pg MCHC 31.9 L (32.2-35.5) g/dL RDW 16.3 H (11.7-14.4) % Plt Count 388 H (182-369) x10^3/uL MPV 10.0 (9.4-12.3) fL Gran % 58.9 (34.0-71.1) % Immature Gran % (Auto) 0.6 H (0.001-0.429) % Nucleat RBC Rel Count 0.0 (0.00-0.2) % Eos # (Auto) 0.25 (0.04-0.36) x10^3/uL Immature Gran # (Auto) 0.04 H (0.001-0.031) x10^3u/L Absolute Lymphs (auto) 2.05 (1.18-3.74) x10^3/uL Absolute Monos (auto) 0.58 (0.24-0.86) x10^3/uL Absolute Nucleated RBC 0.00 (0.00-0.012) x10^3u/L Lymphocytes % 28.3 (19.3-51.7) % Monocytes % 8.0 (4.7-12.5) % Eosinophils % 3.5 (0.7-5.8) % Basophils % 0.7 (0.1-1.2) % Absolute Granulocytes 4.27 (1.56-6.13) x10^3/uL Basophils # 0.05 (0.01-0.08) x10^3/uL Sodium 140 (135-145) mmol/L Potassium 4.0 (3.5-5.1) mmol/L Chloride 108 H (98-107) mmol/L Carbon Dioxide 21 L (22-30) mmol/L Anion Gap 14.5 (5-15) MEQ/L BUN 19 H (7-17) mg/dL Creatinine 1.27 H (0.52-1.04) mg/dL Estimated GFR 47.8 ML/MIN Glucose 72 L (74-106) mg/dL Calcium 8.6 (8.4-10.2) mg/dL Total Bilirubin 0.60 (0.2-1.3) mg/dL AST 54 H (14-36) U/L ALT 33 (0-35) U/L Alkaline Phosphatase 106 (38-126) U/L Serum Total Protein 6.3 (6.3-8.2) g/dL Albumin 3.8 (3.5-5.0) g/dL Assessment/Plan (1) Hypothermia Current Visit: Yes Status: Acute Assessment & Plan: secondary to exposure. Similar presentation to how she came in 8 days ago. At that time, she had been reported to be kicked out of her house. She states that she was home prior to being brought in today, but this is inconsistent with the report from EMS. I suspect patient is on situation is still unstable, and she remains at high risk of recurrent exposure. Her quadrant pressure has improved well with bear hugger alone, and she is currently normothermic. -Encephalopathy has resolved with her normal temperature. Consult social work for assistance with safe discharge, as well as getting her medications - patient has requested rehab stay for strengthening 06/22: -Resolved Code(s): T68.XXXA - HYPOTHERMIA, INITIAL ENCOUNTER (2) CAD (coronary artery disease) Current Visit: Yes Status: Acute Assessment & Plan: -Recent NSTEMI and stent placement 7 days ago patient is unaware of what her medications are. We have obtained some paperwork from [facility] Started on aspirin 81 mg, Simvastatin, and Plavix 75 mg daily will continue No BB on discharge medication list patient requesting rehab stay on discharge and is pending Code(s): I25.10 - ATHSCL HEART DISEASE OF [place] CORONARY ARTERY W/O ANG PCTRS (3) Recurrent falls Current Visit: Yes Status: Acute Assessment & Plan: -PT eval with recommendations for a short term rehab stay d/t impaired safety a wareness, multiple hospitalizations, high fall risk and impaired mobility requiring increased level of assistance. She would require 24 hour care at home and this is not available. She is psychologically stable and would need less than a 30-day rehab stay. 06/22: -continue IPPT - discharge to rehab - pending authorization Code(s): R29.6 - REPEATED FALLS (4) Anemia Current Visit: Yes Status: Acute Assessment & Plan: -Trend cbc - add iron labs -Hgb today at 7.6 -iron saturation at 25% Code(s): D64.9 - ANEMIA, UNSPECIFIED (5) CKD (chronic kidney disease) stage 3, GFR 30-59 ml/min Current Visit: Yes Status: Acute Assessment & Plan: Baseline creat at around 0.8-0.9 -creatinine is 1.8 on admission now at 1.93 - will increase IVF to 100ml/hr -Monitor renal/lytes daily -avoid nephrotoxic meds -IVF 06/23: -Creat reviewed at 1.27- improved from 1.93 0 continue IVF Code(s): N18.30 - CHRONIC KIDNEY DISEASE, STAGE 3 UNSPECIFIED (6) Elevated CPK Current Visit: Yes Status: Acute Assessment & Plan: on patient's initial arrival 1 week ago, there was concern for rhabdomyolysis, although CPK levels were only 4984. Levels today are mildly elevated, but decreasing from 1 week ago, down to 629. Will not trend CPK levels further, as they appear to be improving (7) Polysubstance (excluding opioids) dependence Current Visit: Yes Status: Acute Assessment & Plan: urine drug screen positive for opiates, which might be present from her stay at [facility], but also positive for amphetamines, THC, and barbiturates, which she would not have received in the hospital. Patient also has history of tobacco dependence. -Patient denies use of amphetamines - states she does use THC Will need further assistance with cessation counseling, perhaps can be combined with social work help as above Code(s): F19.20 - OTHER PSYCHOACTIVE SUBSTANCE DEPENDENCE, UNCOMPLICATED (8) Hyponatremia Current Visit: Yes Status: Acute Assessment & Plan: -Sodium levels reviewed at 140 - resolved Code(s): E87.1 - HYPO-OSMOLALITY AND HYPONATREMIA (9) HTN (hypertension) Current Visit: Yes Status: Acute Assessment & Plan: -BP stable- hold home lisinopril for KERLINE Code(s): I10 - ESSENTIAL (PRIMARY) HYPERTENSION (10) Asthma Current Visit: Yes Status: Acute Assessment & Plan: -Does not appear in exacerbation -RT to follow -On RA -Nebs prn Code(s): J45.909 - UNSPECIFIED ASTHMA, UNCOMPLICATED (11) Depression Current Visit: Yes Status: Acute Assessment & Plan: -Does not appear to be on home meds Code(s): F32.A - DEPRESSION, UNSPECIFIED (12) Hypothyroid Current Visit: Yes Status: Acute Assessment & Plan: Noncompliant with her levothyroxine -No overt severe symptoms of hypothyroidism; her initial lethargy on arrival resolved with correction of her hypothermia. -Last known TSH at [facility] last week was 260, improved slightly to 246 today. However, TSH corrects slowly with correction of hypothermia, and normally levels are not repeated for 8 to 12 weeks. Resume levothyroxine supplementation Code(s): T68.XXXA - HYPOTHERMIA, INITIAL ENCOUNTER (2) CAD (coronary artery disease) Current Visit: Yes Status: Acute Code(s): I25.10 - ATHSCL HEART DISEASE OF [place] CORONARY ARTERY W/O ANG PCTRS (3) Recurrent falls Current Visit: Yes Status: Acute Code(s): R29.6 - REPEATED FALLS (4) Anemia Current Visit: Yes Status: Acute Code(s): D64.9 - ANEMIA, UNSPECIFIED (5) CKD (chronic kidney disease) stage 3, GFR 30-59 ml/min Current Visit: Yes Status: Acute Code(s): N18.30 - CHRONIC KIDNEY DISEASE, STAGE 3 UNSPECIFIED (6) Elevated CPK Current Visit: Yes Status: Acute (7) Polysubstance (excluding opioids) dependence Current Visit: Yes Status: Acute Code(s): F19.20 - OTHER PSYCHOACTIVE SUBSTANCE DEPENDENCE, UNCOMPLICATED (8) Hyponatremia Current Visit: Yes Status: Acute Code(s): E87.1 - HYPO-OSMOLALITY AND HYPONATREMIA (9) HTN (hypertension) Current Visit: Yes Status: Acute Code(s): I10 - ESSENTIAL (PRIMARY) HYPERTENSION (10) Asthma Current Visit: Yes Status: Acute Code(s): J45.909 - UNSPECIFIED ASTHMA, UNCOMPLICATED (11) Depression Current Visit: Yes Status: Acute Code(s): F32.A - DEPRESSION, UNSPECIFIED (12) Hypothyroid Current Visit: Yes Status: Acute Code(s): E03.9 - HYPOTHYROIDISM, UNSPECIFIED
[2024-06-24 06:09] LABS: ALBUMIN 3.6 g/dL (3.5-5.0); ANION GAP 13.4 MEQ/L (5-15); BILIRUBIN,TOTAL 0.6 mg/dL (0.2-1.3); Calcium 8.6 mg/dL (8.4-10.2); Creatinine 1 1.05 mg/dL (0.52-1.04); EST GLOMERULAR FILTRATION RATE 60.1 ML/MIN; Potassium 3.9 mmol/L (3.5-5.1); Total Protein 6.1 g/dL (6.3-8.2)
[2024-06-24] MEDS ORDERED: TRANDATE 20 MG/4 ML SYRINGE IV PRN (06:54)
--- NOTE | 2024-06-24 14:50 | PCM.DS ---
Discharge Summary Date of Admission: 06/21/24 02:23 Date of Discharge: 06/24/24 Admitting Physician: RITA VANG MD Consults: Consults on Case 06/20/24 21:44 O [facility] Referral ONCE Primary Care Provider: KULDEEP BEEBE Allergies Allergies amoxicillin [Amoxicillin] Allergy (Severe, Verified 06/21/24 00:09) Difficulty Breathing states took 1/2 pill and went into anaphylactic shock iodine Allergy (Verified 06/21/24 00:09) Rash Penicillins Allergy (Verified 06/21/24 00:09) Sulfa (Sulfonamide Antibiotics) Allergy (Verified 06/21/24 00:09) Hospital Summary - Hospital Course Hospital Course: 64-year-old woman with CAD with recent NSTEMI status post stent placement, hypertension, asthma, hypothyroidism, polysubstance abuse, anxiety and depression who presented to ED 06/20/24 initially with confusion and hypothermia. Of note, patient was brought in by EMS last week after being found wandering outside, poorly responsive, hypothermic. She was found to have KERLINE, anemia, and NSTEMI, and was sent to [facility]. She eventually had 2 stents placed in her LAD on 06/14, and was discharged to home on 06/19. Patient states that she has not yet filled her prescriptions from them. Per patient, she went home, and fell in her house. She states her neighbor got worried about her and called EMS. However, per ED report, EMS found patient again outside, on the ground, and the cold. Patient later stated that she had crawled out of the driveway. When patient first arrived in the ED, her rectal temperature was 93.9 and she was severely confused, although able to answer some questions. She has been rewarmed, and is alert and talkative on the floor. She is complaining only of some pain at her right groin catheter access site from [facility]. However, she denies any numbness or tingling in the right leg, and has full mobility and sensation distally. Denies any chest pain or dyspnea, or any other pain. She notes that she has been off balance for some time, and is supposed to walk with a cane, but she was not using one today.PT has evaluated patient with recommendations for a short term rehab stay d/t impaired safety awareness, multiple hospitalizations, high fall risk and impaired mobility requiring increased level of assistance. She would require 24 hour care at home and this is not available. She is psychologically stable and would need less than a 30- day rehab stay. KERLINE has resolved. Hypothermia resolved. Labs/vitals stable. Patient to discharge to SNF. Will need CBC monitored closely and recheck of TSH in 2 weeks. I spent 35 minutes [id number] with the patient on the day of discharge performing discharge exam, discussing hospital stay and discharge instructions with patient and caregivers, preparation of discharge records, prescriptions & referral forms and addressing any questions/concerns the patient had as documented above. - Vitals & Intake/Output Vital Signs: Vital Signs Temperature 97.8 F 06/24/24 12:00 Pulse Rate 80 06/24/24 12:00 Respiratory Rate 16 06/24/24 12:00 Blood Pressure 172/90 06/24/24 12:00 O2 Sat by Pulse Oximetry 100 06/24/24 12:00 Intake & Output: Intake & Output 06/22/24 06/23/24 06/24/24 06/25/24 11:59 11:59 11:59 11:59 Intake Total 1240 4030 960 280 Output Total 1025 2 Balance 215 4030 958 280 Weight 53 kg - Lab Result Diagrams: 06/24/24 05:28 06/24/24 05:28 Lab Results-Last 24 Hrs: Lab Results-Last 24 Hours 06/24/24 06/24/24 Range/Units 05:28 05:28 WBC 6.8 (3.98-10.04) x10^3/uL RBC 2.41 L (3.93-5.22) x10^6/uL Hgb 7.6 L (11.2-15.7) g/dL Hct 23.7 L (34.1-44.9) % MCV 98.3 H (79.4-94.8) fL MCH 31.5 (25.6-32.2) pg MCHC 32.1 L (32.2-35.5) g/dL RDW 16.6 H (11.7-14.4) % Plt Count 391 H (182-369) x10^3/uL MPV 9.7 (9.4-12.3) fL Gran % 57.9 (34.0-71.1) % Immature Gran % (Auto) 0.6 H (0.001-0.429) % Nucleat RBC Rel Count 0.0 (0.00-0.2) % Eos # (Auto) 0.29 (0.04-0.36) x10^3/uL Immature Gran # (Auto) 0.04 H (0.001-0.031) x10^3u/L Absolute Lymphs (auto) 1.96 (1.18-3.74) x10^3/uL Absolute Monos (auto) 0.53 (0.24-0.86) x10^3/uL Absolute Nucleated RBC 0.00 (0.00-0.012) x10^3u/L Lymphocytes % 28.7 (19.3-51.7) % Monocytes % 7.8 (4.7-12.5) % Eosinophils % 4.3 (0.7-5.8) % Basophils % 0.7 (0.1-1.2) % Absolute Granulocytes 3.95 (1.56-6.13) x10^3/uL Basophils # 0.05 (0.01-0.08) x10^3/uL Sodium 139 (135-145) mmol/L Potassium 3.9 (3.5-5.1) mmol/L Chloride 108 H (98-107) mmol/L Carbon Dioxide 22 (22-30) mmol/L Anion Gap 13.4 (5-15) MEQ/L BUN 17 (7-17) mg/dL Creatinine 1.05 H (0.52-1.04) mg/dL Estimated GFR 60.1 ML/MIN Glucose 104 (74-106) mg/dL Calcium 8.6 (8.4-10.2) mg/dL Total Bilirubin 0.60 (0.2-1.3) mg/dL AST 50 H (14-36) U/L ALT 31 (0-35) U/L Alkaline Phosphatase 95 (38-126) U/L Serum Total Protein 6.1 L (6.3-8.2) g/dL Albumin 3.6 (3.5-5.0) g/dL Micro Results-Entire Visit: Microbiology 06/20/24 21:48 Urine Culture - Final Catherized NO GROWTH - Procedures and Test Procedures and Tests throughout Hospitalization: Therapy Orders & Screens 06/21/24 04:31 PT Eval & Treat ( Order) ONCE Reason for Eval:: evaluate and treat, fall Diagnosis: confusion, low temp Discharge Exam General Appearance: no apparent distress Neurologic Exam: alert, oriented x 3, cooperative Eye Exam: PERRL Ears, Nose, Throat Exam: normal ENT inspection Neck Exam: normal inspection Respiratory Exam: normal breath sounds, lungs clear Cardiovascular Exam: regular rate/rhythm, normal heart sounds Gastrointestinal/Abdomen Exam: soft, normal bowel sounds Pelvic Exam: deferred Rectal Exam: deferred Back Exam: normal inspection Extremity Exam: normal inspection Skin Exam: normal color Final Diagnosis/Problem List - Final Discharge Diagnosis/Problem (1) Hypothermia Current Visit: Yes Status: Resolved Code(s): T68.XXXA - HYPOTHERMIA, INITIAL ENCOUNTER (2) CAD (coronary artery disease) Current Visit: Yes Status: Chronic Code(s): I25.10 - ATHSCL HEART DISEASE OF [place] CORONARY ARTERY W/O ANG PCTRS (3) Recurrent falls Current Visit: Yes Status: Chronic Code(s): R29.6 - REPEATED FALLS (4) Anemia Current Visit: Yes Status: Chronic Code(s): D64.9 - ANEMIA, UNSPECIFIED (5) CKD (chronic kidney disease) stage 3, GFR 30-59 ml/min Current Visit: Yes Status: Chronic Code(s): N18.30 - CHRONIC KIDNEY DISEASE, STAGE 3 UNSPECIFIED (6) Elevated CPK Current Visit: Yes Status: Acute (7) Polysubstance (excluding opioids) dependence Current Visit: Yes Status: Chronic Code(s): F19.20 - OTHER PSYCHOACTIVE SUBSTANCE DEPENDENCE, UNCOMPLICATED (8) Hyponatremia Current Visit: Yes Status: Resolved Code(s): E87.1 - HYPO-OSMOLALITY AND HYPONATREMIA (9) HTN (hypertension) Current Visit: Yes Status: Chronic Code(s): I10 - ESSENTIAL (PRIMARY) HYPERTENSION (10) Asthma Current Visit: Yes Status: Chronic Code(s): J45.909 - UNSPECIFIED ASTHMA, UNCOMPLICATED (11) Depression Current Visit: Yes Status: Chronic Code(s): F32.A - DEPRESSION, UNSPECIFIED (12) Hypothyroid Current Visit: Yes Status: Chronic Code(s): E03.9 - HYPOTHYROIDISM, UNSPECIFIED - Discharge Discharge Date: 06/24/24 Disposition: DC TO ANY "OTHER" CORRECTION Condition: Stable Prescriptions: Continue Levothyroxine Sodium 100 Mcg [Synthroid 100 Mcg] 100 mcg PO DAILY Magnesium Oxide 400 mg [Mag-Ox 400] 400 mg PO BIDWM Lisinopril 10 mg [Zestril 10 MG] 10 mg PO DAILY Aspirin EC 81 mg [Ecotrin 81 mg] 81 mg PO DAILY Clopidogrel Bisulfate [Plavix] 75 mg PO DAILY Atorvastatin Calcium [Lipitor 40Mg] 40 mg PO DAILY Instructions: Hypothyroidism (underactive thyroid), Hypothermia, Substance use disorder Additional Instructions: CORRECTION ORDERS: REGULAR DIET PT/OT EVAL AND TREAT -CBC tomorrow - Recheck TSH level in 2 weeks SEE ATTACHED MED LIST Follow up with: KULDEEP BEEBE [Primary Care Provider] -
[2024-06-24 16:41] VITALS: BP 173/87; PULSE 82; TEMP 97.7; O2SAT 98
== END 2024-06-24 17:30 ==
LOC: ED 20:53 → MED SURG 06-21 02:23 → INTOOBSV 06-21 02:23
PROVIDERS: ADMIT Internal Medicine; ATTEND Internal Medicine
DX: T68.XXXA Hypothermia, initial encounter (principal); I25.10 Atherosclerotic heart disease of native coronary artery without angina pectoris; Z59.12 Inadequate housing utilities; Z59.82 Transportation insecurity; Z59.19 Other inadequate housing; R29.6 Repeated falls; D64.9 Anemia, unspecified; I12.9 Hypertensive chronic kidney disease with stage 1 through stage 4 chronic kidney disease, or unspecified chronic kidney disease; N18.30 Chronic kidney disease, stage 3 unspecified; R79.89 Other specified abnormal findings of blood chemistry; F19.20 Other psychoactive substance dependence, uncomplicated; E87.1 Hypo-osmolality and hyponatremia; J45.909 Unspecified asthma, uncomplicated; F32.A Depression, unspecified; E03.9 Hypothyroidism, unspecified; I25.2 Old myocardial infarction; F41.9 Anxiety disorder, unspecified; E78.5 Hyperlipidemia, unspecified; Z79.899 Other long term (current) drug therapy; Z79.01 Long term (current) use of anticoagulants; Z85.41 Personal history of malignant neoplasm of cervix uteri
CPT/HCPCS: 36415; 51702; 70450; 80053; 80307; 81001; 82550; 82607; 82728; 82746; 83540; 83550; 83605; 83735; 83880; 84439; 84443; 84484; 85025; 87086; 93005; 93041; 97110; 97161; 97530; 99291; Q3014; 93268; 99285; J2405; A9270-GY; G0378